=== PATIENT | female | born 1995 | race Caucasian/White ===

== ENCOUNTER 2024-07-03 17:10 | Inpatient (IN) | payer BC, SELFPAY ==
--- OUTSIDE RECORDS SUMMARY | 2024-07-03 17:14 | XMS_ITS | Clinical Summary ---
Author Organization [facility] Address [address], [place] [address] Care Team Providers Care Bilingual Kindergarten Teacher Name Role Phone Nathalie Galvan PA-C Primary Care Provider + [phone] Source Comments You are receiving this document as you are listed as the primary care provider,follow-up provider, or the patient has been referred to you for consultation.This is in compliance with the Medicare and[facility] E[facility] Incentive [facility],which states Providers who transition their patient to another setting of careor provider of care or refers their patient to another provider of care shouldprovide summary care record for each transition of care or referral. [facility] Allergies No known active allergies Medications Medication Sig Dispensed Refills Start Date End Date Status SUMAtriptan (IMITREX) 100 MG tablet Take 1 Tablet (100 mg) by mouth. Active EVER 0.25-35 MG-MCG tabletIndications:Oral contraceptive pill surveillance TAKE 1 TABLET BY MOUTH EVERY DAY 90 Tablet 2 04/11/2023 Active Active Problems Problem Noted Date Diagnosed Date Traumatic rhabdomyolysis 04/20/2022 Eczema 04/01/2013 Resolved Problems Problem Noted Date Diagnosed Date Resolved Date Dysuria 12/22/2022 12/22/2022 Left arm pain 04/20/2022 04/26/2022 Cervical cancer screening 12/12/2017 Overview (09/24/2020): Per visit note 12/06/17, no hx abnormal Pap 2018 ASCUS, HPV Positive for High Risk HPV types other than 16 or 18 22 y.o. Plan, per ASCCP guidelines: Repeat cytology only in 12 months (11/2017) 2019 NILM 23 y.o. 2020 NILM 25 y.o. Plan: Pap 09/2023 Plantar wart, left foot 06/15/2015 06/0 06/2022 Dysmenorrhea 04/01/2013 04/26/2022 Immunizations Name Administration Dates Next Due 4vHPV (Gardasil) 11/14/2007,07/09/2007, 7 DTP-Hib (Tetramune) 1995,1995,1994 DTaP 05/11/2000,10/27/1996 Flu Vac (3+ yrs) 08/24/2020,01/11/2007 HepA Adult (19+ yrs) 12/22/2022 HepA Ped/Adol (1-18 yrs) 04/19/2015,04/19/2015,0 04/01/2013 HepB Ped/Adol (0-18 yrs) 01/21/1996,1995,0 1995 MCV4 (Menactra) 04/01/2013,05/03/2007 MCV4 Menveo 2m.+ (two vial) 04/01/2013 MMR 05/11/2000,07/28/1996 Polio, Unspecified Formulation 05/11/2000,1994,1995,1995 Tdap 12/04/2017,05/03/2007 Family History Medical History Relation Name Comments No Known Problems Father No Known Problems Mother No Known Problems Maternal Grandfather No Known Problems Maternal Grandmother No Known Problems Paternal Grandfather Dementia Paternal Grandmother No Known Problems Sister 1 No Known Problems Sister 2 Relation Name Status Comments Father Alive Mother Alive Maternal Grandfather Alive Maternal Grandmother Alive Paternal Grandfather Paternal Grandmother (Age 88) Sister 1 Alive Sister 2 Alive Social History Tobacco Use Types Packs/Day Years Used Date Smoking Tobacco: Never Smokeless Tobacco: Never Alcohol Use Standard Drinks/Week Comments Yes 3 (1 standard drink = 0.6 oz pur e alcohol) occ. PHQ-2 Answer Date Recorded PHQ-2 Score 0 03/13/2023 Sex and Gender Information Value Date Recorded Sex Assigned at Not on file Gender Identity Not on file Sexual Orientation Not on file Last Filed Vital Signs Vital Sign Reading Time Taken Comments Blood Pressure 118/69 03/13/2023 2:35 PM CDT Pulse 66 03/13/2023 2:35 PM CDT Temperature 36.7 ??C (98 ??F) 03/13/2023 2:35 PM CDT Respiratory Rate 16 03/13/2023 2:35 PM CDT Oxygen Saturation 99% 08/23/2022 2:39 PM CDT Inhaled Oxygen Concentration - - Weight 71.7 kg (158 lb) 03/13/2023 2:35 PM CDT Height 166.4 cm (5' 5.5) 03/13/2023 2:35 PM CDT Body Mass Index 25.89 03/13/2023 2:35 PM CDT Plan of Treatment Health Maintenance Due Date Last Done Comments Adult Preventive Visit 09/20/2022 , 11/22/2018, 12/04/2017, Additional history exists COVID-19 Vaccine ( season) 2023 Cervical Cancer Screening 09/20/20232019, 11/22/2018, 12/04/2017 Influenza (#1) 2024 08/24/2020, 01/11/2007 DTaP/Tdap/Td (8 - Tdap) 12/04/2027 12/04/19 18, 05/03/2007, 05/11/2000, Additional history exists Zoster/Shingles (1 of 2) 2045 Hib Aged Out 1995, 12/1994, 1995 No longer eligible based on patient's age to complete this topic HepB Completed 01/21/1996, 05/1995, 1995 IPV (Polio) Completed 05/11/2000, 10/19, 1995, Additional history exists HPV Vaccine Completed 11/14/2007, 06/20, 05/03/2007 MCV4 Completed 04/01/2013, 03/19, 05/03/2007 Chlamydia Discontinued 01/18/2022, 12/2019, 11/22/2018, Additional history exists HIV Screening (Preventive Services) Completed 04/26/2022 Hep C Screening (Preventive Services) Completed 04/26/2022 HepA Completed 12/22/2022, 0611/2014, 04/19/2015, Additional history exists Pneumococcal Aged Out No longer eligi ble based on patient's age to complete this topic Procedures Procedure Name Priority Date/Time Associated Diagnosis Comments HIV 1/2 AG/AB 4TH GEN Routine 04/26/2022 3:25 PM CDT Screening for HIV (human immunodeficiency virus) HEPATITIS C ANTIBODY, WITH REFLEX Routine 04/26/2022 3:25 PM CDT Need for hepatitis C screening test CHLAMYDIA & GC (14 YEARS & OLDER) Routine 01/18/2022 1:40 PM MOTOR 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 Vaginal itching PAP TEST Routine 09/20/2020 9:51 AM MOTOR VEHICLE EMISSIONS INSPECTOR Screening for malignant neoplasm of cervix from Last 3 Months or Most Recently Relevant to Health Maintenance Results * HIV 1/2 Ag/Ab 4th Generation (04/26/2022 3:25 PM CDT) HIV 1/2 Antigen/Antib yuval (4th generation) Negative (Non Reactive) Negative (Non Reactive) 04/26/2022 8:26 PM CDT [facility] Comment:HIV-1 p24 Antigen an d HIV-1/HIV-2 Antibody not detected Blood Venipuncture / Unknown 04/26/2022 3:25 PM CDT 04/26/2022 3:25 PM CDT Nathalie Galvan PA-C LAB_1 [facility] [address] [place] [address], [facility] * Hepatitis C Virus Jenn with Reflex (04/26/2022 3:25 PM CDT) Hepatitis C Antibody Negative (Non Reactive) Negative (Non Reactive) 04/26/2022 8:45 PM CDT [facility] Comment:Antibodies to HCV no t detected. Does not exclude the possiblity of exposure to HCV. Blood Venipuncture / Unknown 04/26/2022 3:25 PM CDT 04/26/2022 3:25 PM CDT Nathalie Galvan PA-C LAB_1 [facility] [address] * Chlamydia and GC STD (01/18/2022 1:40 PM MOTOR VEHICLE EMISSIONS INSPECTOR) Chlamydia Trachomatis STD Not Detected Not Detected 01/19/2022 12:06 PM MOTOR VEHICLE EMISSIONS INSPECTOR [facility] N. gonorrhoeae STD Not Detected Not Detected 01/19/2022 12:06 PM MOTOR VEHICLE EMISSIONS INSPECTOR [facility] Swab STD SPECIMEN FROM VAGINA / Unknown Non-blood Collection / Unknown 01/18/2022 1:40 PM MOTOR VEHICLE EMISSIONS INSPECTOR 01/18/2022 3:48 PM MOTOR VEHICLE EMISSIONS INSPECTOR Narrative [facility] - 01/19/2022 12:06 PM MOTOR VEHICLE EMISSIONS INSPECTOR Test performed by Insurance Associate Mediated Amplification (TMA). Nathalie Galvan PA-C LAB_1 Performing Organization Address [facility] Co de Phone Number [facility] [address] [phone] * PAP Test (09/20/2020 9:51 AM MOTOR VEHICLE EMISSIONS INSPECTOR) Case Report Pap ? Case: [id number] ? Authorizing Provider: ??Faith Carr APRN, CNP Collected: ? 09/20/2020 0951 ? Ordering Location: [facility] ?? Received: ?09/20/2020 1039 ? First Screen: ?Vanessa [place] CT (ASCP) ? Specimen: ?Pap Test, Routine, Cervix/Endocervix ? 09/24/2020 10:07 AM [facility] Pap Specimen Adequacy Satisfactory for evaluation, endocervical/ramsay sformation zone component absent. 09/24/2020 10:07 AM [facility] Pap Interpretation Negative for intraepithelial lesion or malignancy (NILM). 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 09/24/2020 10:07 AM [facility] Pap Disclaimer The Pap test is a screening test designed to aid in the detection of cervical cancer and its precursor lesions. It is not a diagnostic procedure and should not be used as the sole means of detecting cervical cancer. Both false-positive and false-negative results may occur. 09/24/2020 10:07 AM [facility] Gross Description The specimen is received in SurePath fixative and properly labeled. 1 Pap-stained SurePath slide is prepared. 09/24/2020 10:07 AM [facility] Embedded Images 0 10:07 AM [facility] Other Specimen Type ENTIRE ENDOCERVIX / Unknown 09/20/2020 9:51 AM MOTOR VEHICLE EMISSIONS INSPECTOR 09/20/2020 10:39 AM MOTOR VEHICLE EMISSIONS INSPECTOR Comment:LMP: Patient's last menstrual period was 09/14/2020 (approximate). Faith Carr APRN, TYPING CHECKER LAB PATHOLOGY Performing Organization Address City/State/[facility] de Phone Number [address] [address] [phone] from Last 3 Months or Most Recently Relevant to Health Maintenance Advance Directives * Full Code (Latest Code Status on File) Date Activated Date Inactivated Comments 04/20/2022 3:18 PM 2022 1:13 PM Question Answer Comments On Admission, Code status was determined by: Dis cussed with patient/family Care Teams Bilingual Kindergarten Teacher Relationship Specialty Start Date End Date Nathalie Galvan PA-C [id number] [place] [address] PCP - General Physician English As A Second Language Instructor 08/23/22
--- OUTSIDE RECORDS SUMMARY | 2024-07-03 17:14 | XMS_ITS | Continuity of Care Document ---
Author Organization [facility] Address Unknown Care Team Providers Care Finance Lead Name Role Phone BC ORTEGA Primary Care Physician [phone] Encounter Date(s): 04/25/24 - 04/25/24 [facility] [address] [place] [phone] Encounter Diagnosis (Discharge Diagnosis) - 04/25/24 Discharge Disposition: 01-Discharge to Home (Routine) Attending Physician: Kylie ZACARIAS, Juan Miguel Narvaez Allergies, Adverse Reactions, Alerts No Known Allergies Mental Status 04/25/24 Neurological Symptoms None Gait Steady Characteristics of Speech Clear Level of Consciousness Alert Problem List Condition Confirmation Course Effective Dates Status Health St atus Informant 1 Confirmed 04/25/24 Active 1Patient states US dates and LMP dates were within 3 days of each other Vital Signs Most recent to oldest [Reference Range]: 1 Height/Length Measured 165 cm (04/25/24 11:28 AM) Weight 81.2 kg (04/25/24 11:28 AM) Body Mass Index 29.8 kg/m2 (04/25/24 11:28 AM) SpO2 [90-100 %] 98 % (04/25/24 1:00 PM) Blood Pressure [90-139/60-89 mmHg] 108/6 7mmHg (04/25/24 1:00 PM) Temperature Temporal Artery [36.3-37.8 D egC] 36.8 DegC (04/25/24 11:28 AM) Peripheral Pulse Rate [60-100 bpm] 80 bp m (04/25/24 11:28 AM) Heart Rate Monitored [60-100 bpm] 82 bpm (04/25/24 1:00 PM) Respiratory Rate [14-20 br/min] 16 br/mi n (04/25/24 11:28 AM) Mean Arterial Pressure, Cuff 81 mmHg (04/25/24 1:00 PM) Pulse Rate (SpO2) 81 bpm (04/25/24 1:00 PM) Social History Social History Type Response Smoking Status Never smoker; Smokel ess tobacco use: Never smokeless tobacco entered on: 04/25/24 Sex Hospital Discharge Instructions Patient Education 04/25/2024 12:51:02 : Kick Counts Counting Your Baby's Kicks: Care Instructions Overview Counting your baby's kicks is one way your doctor can tell that your baby is healthy. You will probably feel your baby move for the first time between 16 and 22 weeks. The movement may feel like flutters rather than kicks. Your baby may move more at certain times of the day. When you are active, you may notice less kicking than when you are resting. At your visits, your doctor will ask whether the baby is active. In your last trimester, your doctor may ask you to count the number of times you feel your baby move. Follow-up care is a davies part of your treatment and safety. Be sure to make and go to all appointments, and call your doctor if you are having problems. It's also a good idea to know your test resultsand keep a list of the medicines you take. How do you count kicks? A common method of checking your baby's movement is to note the length of time it takes to count 10 movements (such as kicks, flutters, or rolls). ??? Pick your baby's most active time of day to count. This may be any time from morning to evening. ??? If you don't feel 10 movements in an hour, have something to eat or drink and count for anotherhour. If you don't feel at least 10 movements in the 2-hour period, call your doctor. Do not use an at-home Doppler heart monitor in place of counting movements. When should you call for help? Call your doctor now or seek immediate medical care if: ??? You feel fewer than 10 movements in a 2-hour period. ??? You noticed that your baby has stopped moving or is moving less than normal. Watch closely for changes in your health, and be sure to contact your doctor if you have any problems. Where can you learn more? Go to https://www.[employer].net/patientEd Enter U048 in the search box to learn more about Counting Your Baby's Kicks: Care Instructions. Current as of: May 29, 2023?Content Version: 13.8 ?? [employer]. Care instructions adapted under license by your healthcare professional. If you have questions about a medical condition or this instruction, always ask your healthcare professional. [employer] disclaims any warranty or liability for your use of this information. Follow Up Care 04/25/2024 11:07:01 With:BC ORTEGA Address: [address] [place] [phone] When: Unknown Comments:Monitor symptoms closely. ??Follow-up with your OB physician when you return home for further care and??treatment. Emergency department Discharge instructions * Susan LEWIS, Louise Schulte: PERFORM Event Display: ED Discharge Instructions Authored Date: [id number] [facility] [address] [place],??[place],??[phone] Fax:??[phone] Patient Visit Instructions Patient Information GINA HOPSON :1995 Date:??04/25/24 [facility] would like to thank you for allowing us to assist you with your healthcare needs. Our entire staff strives to provide a very good experience for our patients and their families. Please ensure you follow-up per the instructions below. Accessing Your Medical Information Online Information from your today's visit will be available on [facility]. This includes clinical notes with your health care provider's notes, findings from your exam and recommendations, including your treatment plan, follow-up appointments or referrals. Lab results, diagnostic testing and discharge instructions also will be available. To access [facility], visit [email or web address] and click on the [facility] icon in the upper right hand corner. You will be directed to the login page. To access your medical record from [facility], navigate to the left bar and select the 'Health Record' dropdown. To setup a [facility] account, go to [email or web address]. If you do not find the documents you need on [facility], please contact [facility] Release of Information: ???Phone: , ext. [phone], option 3?Email: [email or web address] Diagnosis from Today's Visit Discharge Vitals Temperature??(Temporal Artery) 36.8 DegC Heart Rate??(Peripheral) 80 bpm Respiratory Rate?? 16 br/min Blood Pressure?? 127/71?? Height?? 64.96 in Weight?? 179.02 lb BMI?? 29.8 Allergies No Known Allergies What to Do Next You were treated today on an emergency/urgent basis; it may be courtney to contact your primary care provider to notify them of your visit today. You may have been referred to your regular doctor or a specialist, please follow up as instructed. If your condition worsens or you can't get in to see the doctor, contact the Emergency Department. Follow-Up Care Follow Up with??BC ORTEGA Comment: Monitor symptoms closely. ??Follow-up with your OB physician when you return home for further care and??treatment. Where: [place] [phone] Education Materials ? Counting Your Baby's Kicks: Care Instructions Overview Counting your baby's kicks is one way your doctor can tell that your baby is healthy. You will probably feel your baby move for the first time between 16 and 22 weeks. The movement may feel like flutters rather than kicks. Your baby may move more at certain times of the day. When you are active, you may notice less kicking than when you are resting. At your visits, your doctor will ask whether the baby is active. In your last trimester, your doctor may ask you to count the number of times you feel your baby move. Follow-up care is a davies part of your treatment and safety. Be sure to make and go to all appointments, and call your doctor if you are having problems. It's also a good idea to know your test resultsand keep a list of the medicines you take. How do you count kicks? A common method of checking your baby's movement is to note the length of time it takes to count 10 movements (such as kicks, flutters, or rolls). ??? Pick your baby's most active time of day to count. This may be any time from morning to evening. ??? If you don't feel 10 movements in an hour, have something to eat or drink and count for anotherhour. If you don't feel at least 10 movements in the 2-hour period, call your doctor. Do not use an at-home Doppler heart monitor in place of counting movements. When should you call for help? Call your doctor now or seek immediate medical care if: ? You feel fewer than 10 movements in a 2-hour period. ? You noticed that your baby has stopped moving or is moving less than normal. Watch closely for changes in your health, and be sure to contact your doctor if you have any problems. Where can you learn more? Go to https://www.[employer].net/patientEd Enter U048 in the search box to learn more about Counting Your Baby's Kicks: Care Instructions. Current as of: May 29, 2023?Content Version: 13.8 ?? [employer]. Care instructions adapted under license by your healthcare professional. If you have questions about a medical condition or this instruction, always ask your healthcare professional. [employer] disclaims any warranty or liability for your use of this information. ?? Note * Juan Miguel Espinal MD: PERFORM Event Display: ED/UC Note-Provider Authored Date: [id number] Encounter Type Emergency Basic Information Time Seen: Juan Miguel Espinal MD ??04/25/2024 11:25 Chief Complaint 30 wks, reduced movement History of Present Illness Social history: Visiting the area for the weekend.29-year-old female patient who is approximately??29 days and 3 weeks presents for??evaluation of the . ??Patient reports that??she does have decreased movement in the past week but normal over the last 12 hours.?? For that reason??she came in here to be evaluated. ?? This is her first she never had a previous miscarriages.?? Follow-up for the back home and heart tones are generally been in the 130s and 140s.?? Resume to date of confinement about??July 08, 2024.?? She has had no vaginal bleeding and no vaginal discharge. ??No pelvic pain or abdominal??pain with this.?? No other concerns. ?? Past medical history: 1 para 0??she denies any other long-term medical problems. Review of Systems As documented in HPI Problem List/Past Medical History Ongoing Social History Alcohol Use:Never Electronic Cigarette/Vaping E-Cigarette Use:Never Home/Environment Injuries/Abuse/Neglect in household:No Feels unsafe at home:No Substance Abuse Use:Never Tobacco Smoking tobacco use:Never smoker Smokeless tobacco use:Never smokeless tobacco Allergies No Known Allergies Physical Exam Vital Signs & Measurements Triage: T: 36.8 ??C (Temporal Artery) HR: 80 (Peripheral) BP: 127/71 RR: 16 SpO2: 100% O2 Therapy: Room air WT: 81.2 kg WT: 81.200 kg (Dosing) BMI: 29.8 General: Patient is awake alert pleasant cooperative does not appear in any acute distress. ??Vitalsigns are stable heart tones are in the 130s. Medication inventory not completed. Medical Decision Making The OB nurse was present and checked for heart tones.? heart tones were checked and they were in the 130s. ??We also obtained an ultrasound which showed normal cervix, normal amount of amniotic fluid. ??Good movement??of the fetus.?? No other concerning findings at this time. ?? At this time things are reassuring and checked out normal on the patient. ??She has no other concerns.?? Will have the patient discharged home and follow-up with her regular OB doctor back home. ??She has an appointment for this next week. Assessment/Plan 1.?? Ordered: Discharge Patient, 04/25/24 12:48:00 CDT, Discharge To: to Home, Constant Indicator ?? Follow Up Care With When Contact Information [place], [place] [address] [place] [address] Additional Instructions: Monitor symptoms closely. ??Follow-up with your OB physician when you return home for further care and??treatment. Electronically Signed on 04/25/2024 12:48 PM CDT Kylie ZACARIAS, Juan Miguel Narvaez Emergency department Education note * Susan LEWIS, Louise Schulte: PERFORM, SIGN, VERIFY Event Display: ED Patient Education Note Authored Date: pediatric hospitalist Counting Your Baby's Kicks: Care Instructions Overview Counting your baby's kicks is one way your doctor can tell that your baby is healthy. You will probably feel your baby move for the first time between 16 and 22 weeks. The movement may feel like flutters rather than kicks. Your baby may move more at certain times of the day. When you are active, you may notice less kicking than when you are resting. At your visits, your doctor will ask whether the baby is active. In your last trimester, your doctor may ask you to count the number of times you feel your baby move. Follow-up care is a davies part of your treatment and safety. Be sure to make and go to all appointments, and call your doctor if you are having problems. It's also a good idea to know your test resultsand keep a list of the medicines you take. How do you count kicks? A common method of checking your baby's movement is to note the length of time it takes to count 10 movements (such as kicks, flutters, or rolls). ??? Pick your baby's most active time of day to count. This may be any time from morning to evening. ??? If you don't feel 10 movements in an hour, have something to eat or drink and count for anotherhour. If you don't feel at least 10 movements in the 2-hour period, call your doctor. Do not use an at-home Doppler heart monitor in place of counting movements. When should you call for help? Call your doctor now or seek immediate medical care if: ??? You feel fewer than 10 movements in a 2-hour period. ??? You noticed that your baby has stopped moving or is moving less than normal. Watch closely for changes in your health, and be sure to contact your doctor if you have any problems. Where can you learn more? Go to https://www.[employer].net/patientEd Enter U048 in the search box to learn more about Counting Your Baby's Kicks: Care Instructions. Current as of: May 29, 2023?Content Version: 13.8 ?? [id number] [employer]. Care instructions adapted under license by your healthcare professional. If you have questions about a medical condition or this instruction, always ask your healthcare professional. [employer] disclaims any warranty or liability for your use of this information. US for limited * Kylie ZACARIAS, Juan Miguel Narvaez: ENDORSE Juan Miguel Espinal MD: ENDORSE, PERFORM, SIGN Susan LEWIS, Louise Schulte: REVIEW Event Display: US OB Limited Authored Date: [id number] Patient Care team information Care Team Personnel Name: BC ORTEGA Member Role: Primary Care Physician Address: Address: [address] [place] [phone] [place] Care Team Related Persons Name: VALERIO HOPSON Address: Home [id number] [place] [phone]
--- OUTSIDE RECORDS SUMMARY | 2024-07-03 17:14 | XMS_ITS | Clinical Summary ---
Author Organization [employer] [facility] Address [place], [place] [address] Care Team Providers Care Frame Catcher Name Role Phone Abraham Stevenson MD Unavailable [phone] Brandi Tirado MD Primary Care Provider Allergies No known active allergies Medications Medication Sig Dispensed Refills Start Date End Date Status no.167/folic acid/dha (ONE-A-DAY ORAL) Take by mouth. Active Breast Pump PurchaseIndications :Care and examination of lactating mother Electric breast pump for home use. Gestational age at delivery: 40 weeks. Reason for need: return to work. Length of need: 99 months (lifetime use) 1 Each 02/21/2024 Active clindamycin phos 1%-benzoyl perox 5% gelIndications:Acne vulgaris Apply topically to affected area(s) two times daily. 25 g 11 05/01/2024 Active escitalopram oxalate (LEXAPRO) 5 mg tabletIndications:A nxiety Take 1 Tablet (5 mg) by mouth once daily in the morning. 90 Tablet 05/21/2024 Active Active Problems Problem Noted Date Diagnosed Date Choroid plexus cyst 03/06/2024 [facility] Supervision of high-risk Overview: Marlo Hearn : 1995 [facility] ULTRASOUND/TESTING PATIENT Support person name: Anselmo ULTRASOUND TYPE: L2 REASON FOR VISIT: choroid plexus cyst on outside US NEXT VISIT ALERTS: Final HORTENCIA by LMP LMP Date: Patient's last menstrual period was 10/02/2023 (exact date). HORTENCIA:07/08/24 Early US: Date: 12/03/23 GA: 8w3d HORTENCIA: 07/11/24 PrePregnancy Weight: 162 lbs Height: 5'6 BMI: 26 PLANS & FUTURE APPOINTMENTS: ULTRASOUND/GROWTH PLAN: - Through: - Growth: Next TESTING PLAN: - Testing: Through DELIVERY PLAN: - Scheduled delivery: - Preferred delivery location: PRIMARY DIAGNOSIS: 28 y.o. Estimated Date of Delivery: 07/08/24 Choroid plexus cyst on outside US MATERNAL Depression PREVIOUS ULTRASOUNDS: 03/06/24 22w2d 02/21/24 20w2d EFW 383 grams, percentile: 78th. R Chorioid plexus cyst (PCP) ECHO: REFERRING PROVIDER/CLINIC: Brandi Tirado MD - [facility] [place] Primary MD approves scheduling of recommended ultrasounds/testing: Yes SPECIALISTS/CONSULTS: Include: Specialty MD Clinic Name Phone# [place] and ADDED TO PATIENT CARE TEAM Yes GENETICS: NIPS: Low risk CARE COORDINATION: PERTINENT LABS: Labs reviewed? Yes Normal? Yes Blood type: A Rh Positive Antibody screen: Negative PERTINENT MEDS: PROCEDURES: IF FGR <10% or EFW <2000 grams: Add FGRPCOM PLAN OF CARE: Original and updated POC ASCUS with positive high risk HPV cervical 01/23 Overview: 11/2017 ASCUS 11/2018 NIL 09/2020 NIL 12/2023 ASCUS/HPV +, HPV 16/18 negative Provider Plan: Colposcopy Encounter for supervision of normal first in first trimester 12/19/2023 11/13/2023 Overview: Estimated Date of Delivery: 07/08/24 Patient's last menstrual period was 10/02/2023 (exact date). GBS- Vaginal/Rectal OB Strep B PCR Date Value Ref Range Status 06/13/2024 Negative Final 28wk labs- GLUCOSE,GESTATIONAL Date Value Ref Range Status 04/18/2024 74 70 - 139 mg/dL Final HEMOGLOBIN Date Value Ref Range Status 04/18/2024 12.3 12.0 - 16.0 g/dL Final TREPONEMA PALLIDUM Date Value Ref Range Status 04/18/2024 Non-Reactive Non-Reactive Final Last Tdap- 04/18/24 Last Flu vaccine- 2019 OB Labs: ABORH Date Value Ref Range Status 11/13/2023 A Rh Positive Final ANTIBODY SCREEN Date Value Ref Range Status 11/13/2023 Negative Negative Final TREPONEMA PALLIDUM Date Value Ref Range Status 11/13/2023 Non-Reactive Non-Reactive Final RUBELLA IGG ANTIBODY Date Value Ref Range Status 11/13/2023 12.20 >=1.00 Index Final INTERPRETATION Date Value Ref Range Status 11/13/2023 Positive Final Comment: Presence of detectable IgG antibodies. A positive result generally indicates exposure to the virus or previous vaccination, but is not an indication of active infection or stage of disease. 11/13/2023 Positive Final Comment: Presence of detectable IgG antibodies. A positive result generally indicates exposure to the virus or previous vaccination, but is not an indication of active infection or stage of disease. HBSAG Date Value Ref Range Status 11/13/2023 Nonreactive Nonreactive Final HEPATITIS C ANTIBODY Date Value Ref Range Status 11/13/2023 Non-Reactive Non-Reactive Final Comment: Please note, per www.CDC.gov: If a patient is known to be at high risk of HCV infection, or is symptomatic, and the physician's suspicion of HCV infection is high, HCV RNA testing is often employed and is of diagnostic value, even after an initial negative anti-HCV test result. HIV-1/HIV-2 SCREEN Date Value Ref Range Status 11/13/2023 Non-Reactive Non-Reactive Final Comment: HIV-1 p24 and HIV-1/HIV-2 Ab Not Detected. VARICELLA ZOSTER IGG ANTIBODY Date Value Ref Range Status 11/13/2023 2,110.0 >=165.0 INDEX Final HEMOGLOBIN Date Value Ref Range Status 11/13/2023 13.1 12.0 - 16.0 g/dL Final PLATELET COUNT Date Value Ref Range Status 11/13/2023 231 140 - 440 thou/cu mm Final CHLAMYDIA PROBE Date Value Ref Range Status 11/13/2023 Negative Final N GONORRHOEAE PROBE Date Value Ref Range Status 11/13/2023 Negative Final No Known Allergies OB History Para Term AB Living 1 0 0 0 0 0 SAB IAB Ectopic Multiple Live Births 0 0 0 0 0 # Outcome Date GA Lbr Celso/2nd Weight Sex Delivery Anes PTL Lv 1 Current Past Medical History: . Date Abnormal Pap smear of cervix 2020 Has had normal PAP since Depression 2017 Migraine headache 2016 Varicella 1998 Past Surgical History: . Laterality Date TONSIL AND ADENOIDECTOMY Bilateral 2005 WISDOM TEETH EXTRACTION Bilateral 2013 Problems (from 11/13/23 to present) No problems associated with this episode. ERICA MCDANIEL RN ....11/13/2023 11:10 AM Estimated Date of Delivery Comme nts Yes 07/08/2024 Encounters Date Type Department Care Team Description 07/02/2024 8:25 AM CDT OB Encounter [address] [place] [address] Brandi Tirado MD Care (39w1d ) 07/02/2024 Travel 07/01/[address] [address] Brandi Tirado MD Appointment Request (APPT REQUEST PRIOR TO 8-16 IF POSSIBLE ) 06/30/2024 Travel 06/27/2024 8:45 AM CDT OB Encounter [address] [address] Lainey Casey DO Care (38 weeks 3 days) 06/27/2024 Travel 06/23/2024 Travel 06/20/2024 8:50 AM CDT OB Encounter [address] [place] [address] Brandi Tirado MD Care (37w 3d/Anxiety is pretty high right now) 06/20/2024 Travel 06/16/2024 Travel 06/13/2024 9:15 AM CDT OB Encounter [address] [place] [address] Brandi Tirado MD Care (36w 3d) 06/13/2024 Travel 06/10/2024 Travel 05/29/2024 11:45 AM CDT OB Encounter [address] [place] [address] Brandi Tirado MD Care (34w 2d/) 05/28/2024 Travel 05/16/2024 11:45 AM CDT [facility] [address] [place] [address] Brandi Tirado MD Care (32 wks 3 days/might have yeast infection-- itchy and feeling like needing to pee more than normal and pain /) 05/16/2024 Travel 05/01/2024 3:15 PM CDT [facility] [address] [place] [address] [address] Brandi Tirado MD Care (30 wks 2 days bacne has been getting worse and painful would like to talk about that) 05/01/2024 Travel 04/18/2024 10:30 AM CDT [facility] [address] [place] [address] [address] Brandi Tirado MD Care (28w 3d/) 04/18/2024 Travel from Last 3 Months Immunizations Name Administration Dates Next Due DTP-HIB 1995,1995,1995 DTaP 05/11/2000,10/27/1996 Hepatitis A (Adult) 12/22/2022 Hepatitis A (Peds) 04/19/2015,04/01/2013 Hepatitis B (Peds) 01/21/1996,1995, 995 Human Papilloma Virus Vaccine 11/14/2007, 007,05/03/2007 Inactivated Polio Vaccine 05/11/2000 Influenza, IIV3 (Age >=3 years) 01/11/2007 MMR 05/11/2000,07/28/1996 Meningococcal Vaccine (Menactra) 04/01/2013,04/19 Meningococcal Vaccine (Menveo) 04/01/2013 Oral Polio Vaccine 1995,1995, 995 Polio Virus, Unspecified 05/11/2000,1995,1 ,1995 Tdap 04/18/2024,12/04/2017,05/03/2007 Family History Medical History Relation Name Comments Good Health Father Heart attack Maternal Uncle Good Health Mother Alzheimer's disease Paternal Grandmother Relation Name Status Comments Father Maternal Uncle Mother Paternal Grandfather Paternal Grandmother Social History Tobacco Use Types Packs/Day Years Used Date Smoking Tobacco: Never Passive Smoke Exposure: Never Smokeless Tobacco: Never Tobacco Cessation:Counseling Given: Yes Alcohol Use Standard Drinks/Week Comments Not Currently 0 (1 standard drink = 0.6 oz pur e alcohol) PHQ-2 Answer Date Recorded PHQ-2 TOTAL SCORE 4 05/19/2024 Social Connections Answer Date Recorded Frequency of Communication with Friends and Fami ly 0 12/19/2023 Financial Resource Strain Answer Date R ecorded Difficulty of Paying Living Expenses 3 12/19/2023 Difficulty of Paying Living Expenses Not on file 12/19/2023 Food Insecurity Answer Date Recorded Worried About Running Out of Food in the Last Ye ar 1 12/19/2023 Transportation Needs Answer Date Record ed Lack of Transportation (Medical) 1 12/19/2023 Housing Stability Answer Date Recorded Unable to Pay for Housing in the Last Year 1 12/19/2023 Estimated Date of Delivery Comme nts Yes 07/08/2024 Sex and Gender Information Value Date Recorded Sex Assigned at Not on file Gender Identity Not on file Sexual Orientation Not on file Obstetrics History Para Term AB IAB SAB Ectopic Multiple Livin g Live Births 1 0 0 0 0 0 0 0 Date Outcome GA Total Labor Labor/2nd/3rd Weight Sex Type Anes PTL Jessie A1 A5 Name Clin Current Summary Episode Dates Number of Fetuses Estimated Date of Delivery 11/13/2023 - Present (07/03/2024) 07/08/2024 (set by Erica Mcdaniel, JOSHUA on 11/13/2023 based on Alternate HORTENCIA Entry) Dating Summary Based On HORTENCIA GA Diff Last Menstrual Period on 10/02/2023 (Exact Date) 07/08/2024 Same Alternate HORTENCIA Entry 07/08/2024 Working Vitals Pregravid Weight Height TWG (As of 07/03/2024) Pregrav id BMI 1.676 m (5' 6) Date GA Fund Present FHR Mvmt BP Weight Edema Alb Glu Ket Dil/ Eff/Sta 4 22w2d Inpatient data not displayed here. See encounter summary. Notes Progress Notes - OB Encounte r - 07/02/2024 - GA:39w1d 07/02/2024 - 39w1d - Brandi Tirado MD SUBJECTIVE: Marlo Hearn is a 29 y.o. female at 39+1 weeks. NO regular/painful contractions, no leaking fluid. No concerns. See visit comments. OBJECTIVE: see OB vitals flow sheet ASSESSMENT : 39+1 weeks gestation with no complications PLAN: Labor signs and symptoms reviewed with patient including painful regular contractions or leaking fluid. RTC 1 weeks. Brandi Tirado MD .................... 07/02/2024 8:36 AM [facility] - GA:38w3d 06/27/2024 - 38w3d - Lainey Casey DO Patient is here for routine care at 38w3d -specific issues: None Concerns today: has had a few [place] contractions; nothing particularly painful or consistent. No bleeding or LOF. No Headache, vision changes, edema, right upper quadrant pain. Baby is moving well Discussed signs/symptoms of labor and when to call See vitals flowsheet. Patient curious about possible induction; briefly reviewed options for induction. Patient will discuss further with primary OB provider next week. RTC in 1 week. Lainey Casey DO .................... 06/27/2024 9:01 AM Progress Notes - OB Encounte r - 06/20/2024 - GA:37w3d 06/20/2024 - 373d - Brandi Tirado MD SUBJECTIVE: Marlo Hearn is a 29 y.o. female at 37+3 weeks. No concerns. Other than a little more anxious this week. NOt sure is lexapro is helping yet. Not ready to increase medication. See visit comments. OBJECTIVE: see OB vitals flow sheet ASSESSMENT : 37+3 weeks gestation with no complications PLAN: Labor signs and symptoms reviewed with patient including painful regular contractions or leaking fluid. RTC 1 weeks. Brandi Tirado MD .................... 06/19/2024 7:10 PM Progress Notes - OB Encounte r - 06/13/2024 - GA:36w3d 06/13/2024 - 36w3d - Brandi Tirado MD SUBJECTIVE: Marlo Hearn is a 29 y.o. female at 36+3 weeks. No concerns. See visit comments. OBJECTIVE: see OB vitals flow sheet ASSESSMENT : 36+3 weeks gestation with no complications PLAN: Labor signs and symptoms reviewed with patient including painful regular contractions or leaking fluid. GBS completed today RTC 1 weeks. Brandi Tirado MD .................... 06/13/2024 9:18 AM Progress Notes - OB Encounte r - 05/29/2024 - GA:34w2d 05/29/2024 - 34w2d - Brandi Tirado MD SUBJECTIVE: Marlo Hearn is a 29 y.o. female at 34+2 weeks. No concerns. See visit comments. OBJECTIVE: see OB vitals flow sheet ASSESSMENT : 34+2 weeks gestation with no complications PLAN: labor signs and symptoms reviewed with patient including pain, cramping, bleeding or leaking fluid. RTC 2 weeks with GBS Brandi Tirado MD .................... 05/29/2024 12:01 PM Progress Notes - OB Encounte r - 05/16/2024 - GA:32w3d 05/16/2024 - 32w3d - Brandi Tirado MD SUBJECTIVE: Marlo Hearn is a 29 y.o. female at 32+3 weeks. Has had vaginal itching and pain with urination. No increased vaginal discharge. This feels like prior yeast infections. See visit comments. OBJECTIVE: see OB vitals flow sheet Lab Results Component Value Date/Time WBCUA 3-5 05/16/2024 11:58 AM RBCUA 0-2 05/16/2024 11:58 AM BACTERIAUA Many (A) 05/16/2024 11:58 AM EPITHELIALUA Few 05/16/2024 11:58 AM ASSESSMENT : 32+3 weeks gestation with no complications PLAN: labor signs and symptoms reviewed with patient including pain, cramping, bleeding or leaking fluid. Will await urine culture before starting antibiotics. She will try OCT yeast treatment now. Will let me know if symptoms are not improving. RTC 2 weeks. Brandi Tirado MD .................... 05/16/2024 11:55 AM Progress Notes - OB Encounte r - 05/01/2024 - GA:30w2d 05/01/2024 - 30w2d - Brandi Tirado MD SUBJECTIVE: Marlo Hearn is a 29 y.o. female at 30+2 weeks. Went to ER in [place], [place] while vacationing due to decreased movement. Everything checked out fine. Still considering starting an SSRI to help prevent pp depression. She is ramping up frequency of therapy appointments. No other concerns. See visit comments. OBJECTIVE: see OB vitals flow sheet ASSESSMENT : 30+2 weeks gestation with no complications PLAN: labor signs and symptoms reviewed with patient including pain, cramping, bleeding or leaking fluid. RTC 2 weeks. Brandi Tirado MD .................... 05/01/2024 3:30 PM Progress Notes - OB Encounte r - 04/18/2024 - GA:28w3d 04/18/2024 - - Brandi Tirado MD SUBJECTIVE: Marlo Hearn is a 28 y.o. female at 28+3 weeks. No concerns. She does worry about developing pp depression. Has a history of depression, she is off medications for years, she continues to work with a therapist. See visit comments. OBJECTIVE: see OB vitals flow sheet ASSESSMENT : 28+3 weeks gestation with no complications PLAN: labor signs and symptoms reviewed with patient including pain, cramping, bleeding or leaking fluid. Discussed options for treatment of depression, both prior to or right after delivery. She will consider options and let me know. RTC 2 weeks. Brandi Tirado MD .................... 04/18/2024 10:59 AM Progress Notes - OB Encounte r - 03/21/2024 - GA:24w3d 03/21/2024 - w - Brandi Tirado MD SUBJECTIVE: Marlo Hearn is a 28 y.o. female at 24+3 weeks. Reviewed level 2 with resolution of chorioid plexus cyst. No concerns. See visit comments. OBJECTIVE: see OB vitals flow sheet ASSESSMENT : 24+3 weeks gestation with no complications PLAN: labor signs and symptoms reviewed with patient including pain, cramping, bleeding or leaking fluid. RTC 4 weeks with diabetes, hemoglobin & syphilis screening. And TDaP Brandi Tirado MD .................... 03/21/2024 4:08 PM Progress Notes - Hospital En counter - 03/06/2024 - GA:22w2d 03/06/2024 - w2d - Brice Corrigan MS, [facility] [place] Genetic Counseling RE: Marlo Hearn : 1995 MR: [id number] Referred By: Brandi Tirado MD Indication for Visit: Choroid plexus cyst History: HORTENCIA: 07/08/24 by ultrasound GAA: 22w2d Complete genetic screening/testing: Low risk NIPT Medications: none Exposures/infections: none Family History: The family history is negative for reports of defects, intellectual disability, multiple miscarriages, stillbirths and other signs of genetic disease. Family members were reported as healthy unless otherwise indicated. There is no reported consanguinity. Discussion: It was explained that Choroid plexus cysts are seen in approximately 1/100 pregnancies. The choroid plexus is a group of blood vessels in the brain whose function is to produce cerebral spinal fluid. A cyst is defined as fluid fill sac. When a cyst is located in this area of blood vessels, it is called a choroid plexus cyst (DATAPOWER CONSULTANT cyst). DATAPOWER CONSULTANT cysts are not harmful and frequently go away by 30 weeks of . Most often DATAPOWER CONSULTANT cysts occur as the only finding in a and are not associated with an increased level of concern. When DATAPOWER CONSULTANT cysts are seen in association with other problems such as growth delay, heart defects, and/or abnormal positioning of the hands and feet, there is concern for a chromosome abnormality called Trisomy 18. Babies with trisomy 18 have many serious health and developmental concerns and frequently live only weeks or months. A detailed level ll ultrasound is recommended to look for additional concerns. The vast majority of babies with Trisomy 18 will be suspected on a level ll ultrasound evaluation performed in a high risk center such as [facility]. If concerning findings are noted by ultrasound, further tests will be recommended. If the ultrasound results are reassuring yet the patient still wants more information, cell free DNA testing or amniocentesis can be considered. Reassuringly, Marlo already had a low risk NIPT and the remainder of the DATAPOWER CONSULTANT appeared to be an isolated finding. Plan: Marlo will proceed with the level II ultrasound today. See ultrasound report for details. Thank you for allowing us to participate in your patient's care. Please do not hesitate to contact me at [phone] with any additional questions or concerns. Sincerely, Reed Corrigan MS, CGC Licensed Genetic Counselor Total time: 30 minutes in person [facility] - [address], [address] [place] [address] 03/06/2024 - 22w2d - Senthil Knapp MD MPP Ultrasound Visit Your patient had an ultrasound with [facility] on 03/06/2024. The report is ready and can be found in the [facility]. Recommendations regarding further care are listed below. The Impression from the report is below. Thank you for sending her to see us. Senthil De Los Santos MD .................... 03/06/2024 1:33 PM INDICATION Right sided choroid plexus cyst seen on outside US (has resolved) Low risk NIPS Intrauterine at 22w 2d. presentation is Breech. EFW 547 grams 70 Percentile. Growth parameters and estimated weight were appropriate for gestational age. No major structural anomalies identified. No markers for aneuploidy were identified There is no evidence of placenta previa Deepest Vertical Pocket of amniotic fluid: 3.7 cm. The transabdominal cervical length is 3.9 cm. The choroid plexus cyst has resolved RECOMMENDATIONS Return to primary provider for continued care. No alterations in the delivery plan are necessary. No medication change are indicated. No surveillance suggested. No further ultrasounds are necessary for the present indication. COMMENT The patient was seen by the Perinatologist today. The previous ultrasound and the records were reviewed. The results of today's ultrasound were communicated to the patient. An isolated choroid plexus cyst (DATAPOWER CONSULTANT) was found on today's ultrasound. Today's findings are reassuring. CPCs have been associated with trisomy 18, however, most fetuses with an isolated choroid plexus cyst are euploidic, and, in fact, about 2-4% of normal fetuses have CPCs. An isolated DATAPOWER CONSULTANT in a low risk patient with an otherwise normal detailed survey is highly reassuring of a normal karyotype. In addition, multiple or bilateral CPCs do not increase the risk of trisomy 18. Finally, CPCs are not associated with adverse long-term developmental outcomes and do not require future follow up. There are alternatives available for detecting anomalies, aneuploidy and predicting developmental outcome for this . There are risks, benefits and limitations to maternal serum screening, ultrasound, and genetic amniocentesis. Discussed. All questions answered. Senthil De Los Santos MD .................... 03/06/2024 1:34 PM New government regulations related to the Cures act require that this note be released to the patient immediately, sometimes before the referring provider has been contacted. A portion of the information was presented verbally to the patient. The remainder is submitted as background for the referring provider, to be discussed as needed. Medical Decision Making: Consult 30 min Low Level 525[address] Limited number/complexity of problems including resolved DATAPOWER CONSULTANT Limited amount of data including review of prior ultrasound and review of prior external notes. Low risk of morbidity/mortality to the fetus from additional test or tx which (genetic amniocentesis was considered and declined). Progress Notes - OB Encounte r - 02/21/2024 - GA:20w2d 02/21/2024 - 20w2d - Brandi Tirado MD SUBJECTIVE: Marlo Hearn is a 28 y.o. female at 20+2 weeks. No concerns. See visit comments. OBJECTIVE: see OB vitals flow sheet ASSESSMENT : 20+2 weeks gestation with no complications PLAN: labor signs and symptoms reviewed with patient including pain, cramping, bleeding or leaking fluid. RTC 4 weeks. Brandi Tirado MD .................... 02/21/2024 10:45 AM Progress Notes - OB Encounte r - 01/16/2024 - GA:15w1d 01/16/2024 - 15w1d - Brandi Tirado MD SUBJECTIVE: Marlo Hearn is a 28 y.o. female at 15+1 weeks. No concerns. See visit comments. OBJECTIVE: see OB vitals flow sheet ASSESSMENT : 15+1 weeks gestation with no complications PLAN: Warning signs and symptoms reviewed with patient including pain, cramping, bleeding or leaking fluid. RTC 4-5 weeks. anatomy ultrasound in 5 weeks. Brandi Tirado MD .................... 01/16/2024 9:43 AM REAMER Progress Notes - OB Encounte r - 12/19/2023 - GA:11w1d 12/19/2023 - 11 - Brandi Tirado MD Images from the original note were not included. FIRST OB VISIT HPI: Marlo Hearn is a 28 y.o. female at 11w1d with lobo intrauterine here today for a initial OB exam. Estimated due date is Estimated Date of Delivery: 07/08/24 based on LMP and confirmed with 8 week ultrasound. Nausea/Vomiting: yes, but not bad Breast tenderness: yes Fatigue: yes Bleeding: no Taking vitamins: yes Options of sequential screen, cell-free DNA testing, amniocentesis were discussed. Patient is interested in pursuing testing. They want sex of baby in an envelope to shredder picker. AMA: no Previous : no OB History Para Term AB Living 1 0 0 0 0 SAB IAB Ectopic Multiple Live Births 0 0 0 # Outcome Date GA Lbr Celso/2nd Weight Sex Delivery Anes PTL Lv 1 Current Past Medical History: . Date Abnormal Pap smear of cervix 2019 Has had normal PAP since Depression 2017 Migraine headache 2016 Varicella 1999 Past Surgical History: . Laterality Date TONSIL AND ADENOIDECTOMY TONSIL AND ADENOIDECTOMY Bilateral 2004 WISDOM TEETH EXTRACTION Bilateral 2013 Family History Problem Relation Age of Onset Good Health Mother Good Health Father Heart attack Maternal Uncle 46 Alzheimer's disease Paternal Grandmother Social History Tobacco Use Smoking status: Never Passive exposure: Never Smokeless tobacco: Never Substance Use Topics Alcohol use: Not Currently Alcohol/week: 3.0 standard drinks of alcohol Types: 3 Standard drinks or equivalent per week Current Outpatient Medications Medication Sig no.167/folic acid/dha (ONE-A-DAY ORAL) Take by mouth. triamcinolone (ARISTOCORT) 0.1 % ointment Apply topically to affected area(s) 2 times daily. No current facility-administered medications for this visit. Medications have been reviewed by me and are current to the best of my knowledge and ability. ALLERGIES Patient has no known allergies. MENTAL HEALTH HISTORY History of psychiatric diagnosis: Depression Current mental health provider: not applicable Currently taking any psychiatric medications? No INFECTION HISTORY Current Drug Use: none Relevant infection history from OB Questionnaire: none REVIEW OF SYSTEMS Comprehensive ROS complete and negative other than noted in HPI and on OB Questionnaire. PHYSICAL EXAM BP 109/71 (Cuff Site: Right Arm, Position: Sitting, Cuff Size: Adult Regular) Pulse 89 Ht 1.676 m (5' 6) Wt 73.7 kg (162 lb 6.4 oz) LMP 10/02/2023 (Exact Date) SpO2 100% BMI 26.21 kg/m?? General Appearance: Alert, appropriate appearance for age. No acute distress. HEENT Exam: Grossly normal. Neck/Thyroid Exam: Supple, no masses, nodes or enlargement. Lungs: Clear to auscultation bilaterally. Breast Exam: Not indicated. Cardiovascular Exam: Regular rate and rhythm. S1, S2, no murmur. Abd: Soft, non-tender, no masses or organomegaly. Skin: no rashes or lesions. Lymphatics: no nodes palpable. Psychiatric Exam: Alert and oriented x 3, appropriate affect. Pelvic Exam: patient declines today, thinks she is not due for a pap yet. ASSESSMENT/PLAN 28 y.o. at 11w1d with lobo intrauterine . ICD-10-CM 1. Encounter for supervision of normal first in first trimester Z34.01 OK COLLECTION VENOUS BLOOD VENIPUNCTURE 2. Screening for cervical cancer Z12.4 CERTIFICATION ENGINEER THIN PREP PAP SCREEN IMAGED [[id number]] Satisfactory exam. Demonstrates appropriate and health-seeking behaviors toward her . Verbalizes good understanding of care schedule and the importance of coming to each visit as scheduled. Start/continue vitamins. Reviewed labs. She was encouraged to call the office with any questions or concerns. Body mass index is 26.21 kg/m??. Diet and expected weight gain discussed with patient. DEPRESSION SCREEN No data to display Intervention: she is currently receiving therapy and we discussed treatment options if needed in or . Brandi Tirado MD REAMER Progress Notes - OB Encounte r - 11/13/2023 - GA:6w0d 11/13/2023 - 6w0d - Erica Rucker RN SUBJECTIVE: Marlo Hearn is a 28 y.o. female, , who presents for confirmation and ob education. Patient presents to the clinic alone. Had positive test at home. This was Planned, Desired. Patient was not on contraception. 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 MENSTRUAL HISTORY: Patient's last menstrual period was 10/02/2023 (exact date).: Cycle Regularity: regular, every 28-30 days Past Medical History: . Date Abnormal Pap smear of cervix 2020 Has had normal PAP since Depression 2017 Migraine headache 2016 Varicella 1999 OB History Para Term AB Living 1 SAB IAB Ectopic Multiple Live Births # Outcome Date GA Lbr Celso/2nd Weight Sex Delivery Anes PTL Lv 1 Current 5P'S SUBSTANCE ABUSE SCREEN FOR ALCOHOL, DRUGS AND TOBACCO: Did any of your parents have a problem with using alcohol or drugs? Yes, both parents, alcohol. No treatment. Do any of your friends (peers) have problems with drug or alcohol use? No Does your partner have a problem with drug or alcohol use? No Before you knew you were , how often did you drink beer, wine, wine coolers or liquor or use any kind of drug? Sometimes, 3-4 drinks a week. No drugs. In the past month, how often did you drink beer, wine, wine coolers or liquor or use any kind of drug? Not at all How much did you smoke, vape or use tobacco or nicotine in any form before you knew you were ? Don't Smoke, Vape or use Tobacco Genetic Screening Genetic Screening/Teratology Counseling- Includes patient, baby's father, or anyone in either family with: Patient's age 35 years or older as of estimated date of delivery: No Thalassemia (Spanish, Sinhala, Mediterranean, or background): MCV less than 80: No Neural tube defect (Meningomyelocele, Spina bifida, or Anencephaly): No Congenital heart defect: No Down syndrome: No Bhargav-Sachs (Ashkenazi Buddhism, Cajun, Iranian [place]): No Rolly disease (Ashkenazi Buddhism): No Familial dysautonomia (Ashkenazi Buddhism): No Sickle cell disease or trait (): No Hemophilia or other blood disorders: No Muscular dystrophy: No Cystic fibrosis: No [place]'s chorea: No Intellectual disability and/or autism: No Other inherited genetic or chromosomal disorder: No Maternal metabolic disorder (eg. Type 1 diabetes, PKU): No Patient or baby's father had child with defects not listed above: No Recurrent loss, or a stillbirth: Yes (Comment: Sister of FOB 3 miscarriages) Medications (including supplements, vitamins, herbs, or OTC drugs)/illicit/recreational drugs/alcohol since last menstrual period: No CURRENT MEDICATIONS: Current Outpatient Medications Medication Sig no.167/folic acid/dha (ONE-A-DAY ORAL) Take by mouth. No current facility-administered medications for this visit. Medications have been reviewed by me and are current to the best of my knowledge and ability. ALLERGIES: Patient has no known allergies. OBJECTIVE: Wt 75.2 kg (165 lb 12.8 oz) LMP 10/02/2023 (Exact Date) No results found for: PREGURINE ASSESSMENT/PLAN: ICD-10-CM 1. Encounter for supervision of normal first in first trimester Z34.01 CBC W PLT NO DIFF ANTI HIV 1/2 URINE CULTURE TYPE AND SCREEN VARICELLA ZOSTER IMM ASSY RUBELLA IMMUNE STATUS TREPONEMA PALLIDUM HBSAG (HBS) ANTI HCV CERTIFICATION ENGINEER PROBE - CHLAMYDIA DNA PCR [[id number]] URINALYSIS W REFLEX MICROSCOPIC IF POSITIVE [05908.2] US 1ST TRIMESTER (< 14 weeks) [94439.0] EDUCATION/PATIENT INSTRUCTIONS - Advised patient to start/continue vitamin. - Discussed risk of using alcohol, tobacco, other drugs in . - Discussed healthy lifestyle in . - Provided copy of Beginnings book and book inserts, discussed [id number] medications, and follow up. - Encouraged patient to call clinic at [phone] with any vaginal bleeding, fluid leaking from vagina, severe abdominal pain, nausea with severe vomiting, fever higher than 100.4F, painful urination, headache not relieved by Tylenol, or other concerns - labs completed with today's visit. - Patient informed to schedule 1st trimester dating ultrasound between 7-10 weeks. - Initial OB appointment with FP/OB scheduled. PHQ-9, and COVID-19 vaccine discussion to be completed at this visit. Future Appointments Date Time Provider Department Center 12/19/2023 8:25 AM [facility] .................... 11/13/2023 10:31 AM REAMER Last Filed Vital Signs Vital Sign Reading Time Taken Comments Blood Pressure 114/72 07/02/2024 8:26 AM CDT Pulse 96 07/02/2024 8:26 AM CDT Temperature 36.9 ??C (98.5 ??F) 03/23/2011 2:36 PM CD T Respiratory Rate 13 05/16/2024 11:53 AM CDT Oxygen Saturation 98% 07/02/2024 8:26 AM CDT Inhaled Oxygen Concentration - - Weight 90.5 kg (199 lb 9.6 oz) 07/02/2024 8:26 A M CDT Height 167.6 cm (5' 6) 12/19/2023 8:34 AM HAND REAMER Body Mass Index 32.22 12/19/2023 8:34 AM HAND REAMER Plan of Treatment Upcoming Encounters Date Type Department Care Team (Late st Contact Info) Description 07/11/2024 8:50 AM CDT [facility] [address] [place] [address] Brandi Tirado MD [address] [place] [address] Health Maintenance Due Date Last Done Comments COVID-19 vaccine series (2022- season) 2023 Influenza for age 9-49 07/20/2024 01/11/2007 BMI (ht and wt on same day) for age 18+ 12/19/2024 12/19/2023, 11/13/2023 Depression screening for age 12+ 05/19/2025 05/19/2024 Pap test for age 21-65 01/16/2027 , 01/16/2024 Tetanus booster 04/18/2034 04/18/2024, 12/04/2017, 05/03/2007 HIV for age 15-65 Completed 11/13/2023 Hepatitis C screening for ag e 18-79 Completed 11/13/2023 Tdap Completed 04/18/2024, 12/04/2017, 05/03/2007 Pneumococcal series for age 6-64 Aged Out No longer eligible b ased on patient's age to complete this topic Procedures Procedure Name Priority Date/Time Associated Diagnosis Comments VAGINAL/RECTAL OB STREP PCR Routine 06/13/2024 9:35 AM CDT Encounter for supervision of other normal in third trimester URINALYSIS MICROSCOPIC Routine 05/16/2024 11:58 AM CDT Increased frequency of urination URINE CULTURE Routine 05/16/2024 11:58 AM CDT Increased frequency of urination UA W/ SEDIMENT EXAM REFLEXED PER CRITERIA Routine 05/16/2024 11:58 AM CDT Increased frequency of urination GLUCOSE,GESTATIONAL Routine 04/18/2024 1 1:28 AM CDT Encounter for supervision of other normal in second trimester HEMOGLOBIN Routine 04/18/2024 11:28 AM CDT Encounter for supervision of other normal in second trimester TREPONEMA PALLIDUM Routine 04/18/2024 11 :28 AM CDT Encounter for supervision of other normal in second trimester HPV THIN PREP Routine 01/16/2024 9:25 AM HAND REAMER Cervical cancer screening ANTI HIV 1/2 Routine 11/13/2023 11:28 AM HAND REAMER Encounter for supervision of normal first in first trimester ANTI HCV Routine 11/13/2023 11:28 AM HAND REAMER Encounter for supervision of normal first in first trimester from Last 3 Months or Most Recently Relevant to Health Maintenance Results * VAGINAL/RECTAL OB STREP PCR (06/13/2024 9:35 AM CDT) Vaginal/Rectal OB Strep B PCR Negative 06/15/2024 9:22 AM CDT [facility] Other (Vaginal/Rectal) Non-Blood / Unknown 06/13/2024 9:35 AM CDT 06/13/2024 10:04 AM CDT Brandi Tirado MD [facility]CROBIOLOGY [facility] [address] [place] [id number] * (ABNORMAL) URINALYSIS MICROSCOPIC (05/16/2024 11:58 AM CDT) RBC 0-2 0-2, None Seen /HPF 05/16/2024 12:16 PM CDT [facility] WBC 3-5 0-2, 3-5, None Seen /HPF 05/16/2024 12:16 PM CDT [facility] BACTERIA Many(A) None Seen, Rare, Few Bacteria/H PF 05/16/2024 12:16 PM CDT [facility] EPITHELIAL CELLS Few None Seen, Few Epi/HPF 05/16/2024 12:16 PM CDT [facility] Urine URINE SPECIMEN / Unknown Non-Blood / Unknown 05/16/2024 11:58 AM CDT 05/16/2024 12:07 PM CDT Brandi Tirado MD URINE Performing Organization Address City/[facility]/ZIP Co de Phone Number [facility] [address] [place] [address], * URINE CULTURE (05/16/2024 11:58 AM CDT) CULTURE <10,000 CFU/mL multiple organisms 05/18/2024 11:27 AM CDT [facility] Urine URINE SPECIMEN / Unknown Non-Blood / Unknown 05/16/2024 11:58 AM CDT 05/16/2024 12:07 PM CDT Brandi Tirado MD MICROBIOLOGY [facility] [address] [address], * (ABNORMAL) UA W/ SEDIMENT EXAM REFLEXED PER CRITERIA (05/16/2024 11:58 AM CDT) COLOR Yellow Yellow Color 05/16/2024 12:16 PM CDT [facility] CLARITY Clear Clear Clarity 05/16/2024 12:16 PM CDT [facility] SPECIFIC GRAVITY,URINE 1.025 1.010, 1.015, 1.020, 1.025 05/16/2024 12:16 PM CDT [facility] PH,URINE 6.5 6.0, 7.0, 8.0, 5.5, 6.5, 7.5, 8.5 05/16/2024 12:16 PM CDT [facility] UROBILINOGEN, QUALITATIVE Normal Normal EU/dl 05/16/2024 12:16 PM CDT [facility] PROTEIN, URINE Negative Negative mg/dL 05/16/2024 12:16 PM CDT [facility] GLUCOSE, URINE Negative Negative mg/dL 05/16/2024 12:16 PM CDT [facility] KETONES,URINE Negative Negative mg/dL 05/16/2024 12:16 PM CDT [facility] BILIRUBIN,URI NE Negative Negative 05/16/2024 12:16 PM CDT [facility] OCCULT BLOOD,URINE Negative Negative 05/16/2024 12:16 PM CDT [facility] NITRITE Negative Negative 05/16/2024 12:16 PM CDT [facility] LEUKOCYTE ESTERASE Trace(A) Negative 05/16/2024 12:16 PM CDT [facility] Urine URINE SPECIMEN / Unknown Non-Blood / Unknown 05/16/2024 11:58 AM CDT 05/16/2024 12:07 PM CDT Brandi Tirado MD URINE [facility] [address] [place] [address], * TREPONEMA PALLIDUM (04/18/2024 11:28 AM CDT) TREPONEMA PALLIDUM Non-Reacti ve Non-Reacti ve 04/18/2024 11:40 PM CDT [facility] Blood BLOOD SPECIMEN / Unknown Venipuncture / Unknown 04/18/2024 11:28 AM CDT 04/18/2024 11:30 AM CDT Brandi Tirado MD SEND OUTS [facility] [address] [place] [address], * HEMOGLOBIN (04/18/2024 11:28 AM CDT) HEMOGLOBIN 12.3 12.0 - 16.0 g/dL 04/18/2024 11:34 AM CDT [facility] MCV 92 80 - 100 fL 04/18/2024 11:34 AM CDT [facility] Blood BLOOD SPECIMEN / Unknown Venipuncture / Unknown 04/18/2024 11:28 AM CDT 04/18/2024 11:30 AM CDT Brandi Tirado MD HEMATOLOGY Performing Organization Address [facility]/ZIP Co de Phone Number [facility] [address] [place] [address], * GLUCOSE,GESTATIONAL (04/18/2024 11:28 AM CDT) GLUCOSE,GESTAT IONAL 74 70 - 139 mg/dL 04/18/2024 11:37 AM CDT [facility] Blood BLOOD SPECIMEN / Unknown Venipuncture / Unknown 04/18/2024 11:28 AM CDT 04/18/2024 11:30 AM CDT Brandi Tirado MD CHEMISTRY Performing Organization Address City/[facility] Co de Phone Number [facility] [address] [place] [address], * (ABNORMAL) HPV HIGH RISK (01/16/2024 9:25 AM HAND REAMER) TYPE 16 Negative Negative 01/21/2024 5:21 PM HAND REAMER [facility] TYPE 18 Negative Negative 01/21/2024 5:21 PM HAND REAMER [facility] OTHER HIGH RISK TYPES Positive(A) Negative 01/21/2024 5:21 PM HAND REAMER [facility] Other (Cervical) Non-Blood / Unknown 01/16/2024 9:25 AM HAND REAMER 01/17/2024 1:50 PM HAND REAMER Narrative [facility] - 01/21/2024 5:21 PM HAND REAMER Specimen is positive for the DNA of any one of, or combination of, the following high risk HPV types: 31, 33, 35, 39, 45, 51, 52, 56, 58, 59, 66, 68. HPV types 16 and 18 DNA were undetectable or below the pre-set threshold. ? Methodology: Dayanara Zita 4800 HPV Test Brandi Tirado MD MICROBIOLOGY Performing Organization Address [facility] Co de Phone Number [email or web address] [address] [place] [address], * ANTI HCV (11/13/2023 11:28 AM HAND REAMER) Pathologist [facility] HEPATITIS C ANTIBODY Non-Reacti ve Non-React karen 11/13/2023 9:23 PM HAND REAMER [facility] Comment:Please note, per www .CDC.gov: If a patient is known to be at high risk of HCV infection, or is symptomatic, and the physician's suspicion of HCV infection is high, HCV RNA testing is often employed and is of diagnostic value, even after an initial negative anti-HCV test result. Blood BLOOD SPECIMEN / Unknown Venipuncture / Unknown 11/13/2023 11:28 AM HAND REAMER 11/13/2023 11:29 AM HAND REAMER Brandi Tirado MD SEND OUTS Performing Organization Address [facility] Co de Phone Number [email or web address] [address] [place] [address], * ANTI HIV 1/2 (11/13/2023 11:28 AM HAND REAMER) [facility] HIV-1/HIV-2 SCREEN Non-Reacti ve Non-Reacti ve 11/13/2023 9:21 PM HAND REAMER [facility] Comment:HIV-1 p24 and HIV-1/ HIV-2 Ab Not Detected. Blood BLOOD SPECIMEN / Unknown Venipuncture / Unknown 11/13/2023 11:28 AM HAND REAMER 11/13/2023 11:29 AM HAND REAMER Brandi Tirado MD SEND OUTS Performing Organization Address [facility] Co de Phone Number [facility] [address] [place] [address], from Last 3 Months or Most Recently Relevant to Health Maintenance Care Teams Frame Catcher Relationship Specialty Start Date End Date Brandi Tirado MD [address] [place] [address] PCP - General Family Practice 05/06/24 Abraham Stevenson MD [address] [place] [address] 11/01/23
[2024-07-03 17:27] VITALS: BMI 32.3
--- NOTE | 2024-07-03 17:45 | P.OBHP_ITS ---
OB - H&P: HPI Labor/Induction History of Present Illness Date Seen: 07/03/24 Chief Complaint: The patient is a 29 year old 1 para 0 at 39+2 weeks gestation by LMP and confirmed with 1st trimester US, who presents for elective induction at term. Chief complaint: Elective IOL Narrative: Marlo Hearn is a 29 year old at 39+2 weeks for elective induction at term. has been uncomplicated. She is GBS negative, rubella immune, blood type A+. She has been having no contractions. Baby is active. no LOF. History of Present Dating criteria: based on LMP care: good care Ultrasounds: normal 1st trimester US and normal mid trimester US Abnormal ultrasound findings: Choroid plexus cyst at 20 week US, follow up US with MFM it was resolved. Medical complications: none Labs Blood type: A (+) positive Rubella: immune RPR/VDLR: nonreactive GBS status: negative HBsAG: negative Review of Systems Status of ROS: Reports: 10 or more systems reviewed and unremarkable except as noted in History and below Meds Home Medications and Allergies Home Medications ?Medication ?Instructions ?Recorded ?Confirmed ?Type escitalopram oxalate 5 mg tablet 5 mg PO QAM 07/03/24 07/03/24 History vit no.95-ferrous 2 tab PO DAILY 07/03/24 07/03/24 History fumarate 28 mg-folic acid 800 mcg tablet () Allergies Allergy/AdvReac Type Severity Reaction Status Date / Time No Known Drug Allergies Allergy Verified 07/03/24 17:19 OB - H&P: Exam Constitutional: Constitutional: no acute distress Routine HEENT Exam: Head: Present atraumatic Eye: Present EOMI and PERRL ENT: Present mucous membranes moist Routine Neck Exam: Neck: Present full ROM Routine Respiratory Exam: Respiratory: Present CTA bilaterally Routine Cardiovascular Exam: Cardiovascular: RRR Routine Exam: Perineum Description: Normal Detailed Labor and Delivery Exam: Patient Gravid: Yes Dilation (cm): 1 Effacement (%): 80 Cervix position: mid Consistency: soft Cervical ripeness score: 7 Fetus (Single): Station: -2 Amniotic Membrane Status: intact Heart Rate Baseline: 130 Monitor Accelerations: Present Monitor Decelerations: None Medical Lab Technologist Variability: Moderate (6-25) Routine Extremities Exam: Comments: no edema Routine Back/Spine/Pelvis Exam: Back/Spine: full ROM Routine Skin Exam: Present intact Routine Neurological Exam: Present alert, oriented X3 and normal reflexes Routine Psychiatric Exam: Present normal affect and normal thought process OB - Problem Based A/P Additional Plan (1) Depression: Status: Acute (2) Term : Status: Acute Plan Cook catheter placed. Pitocin per procotol starting at 2100. Likely AROM in AM. Delivery/Labor/Induction Plan Plan: induction Induction method: Intracervical balloon catheter (placed without difficult with 60 mL in both the intrauterine and intravaginal balloons. )
[2024-07-03 17:53] VITALS: PULSE 86; O2SAT 93
[2024-07-03 17:54] VITALS: BP 132/79; PULSE 85; RESP 16; TEMP 37.3
[2024-07-03 20:36] LABS: Basophils Absolute Auto 0.01 K/uL (0.00-0.30); Basophils Percent Auto 0.1 % (0.0-3.0); Eosinophils Absolute Auto 0.04 K/uL (0.00-0.50); Eosinophils Percent Auto 0.4 % (0.0-7.0); Hematocrit 38.4 % (33.0-51.0); Hemoglobin* 12.4 gm/dL (12.0-16.0); Immature Granulocytes Abs Auto 0.09 K/uL (0.00-0.30); Immature Granulocytes Pct Auto 0.9 %; Lymphocytes Absolute Auto 2.31 K/uL (0.90-2.90); Lymphocytes Percent Auto 23.5 % (20-44); Mean Corpuscular HGB Conc 32 gm/dL (32-36); Mean Corpuscular Hemoglobin 29 pg (26-34); Mean Corpuscular Volume 91 fL (80-100); Neutrophils Absolute Auto 6.48 K/uL (1.7-7.0); Neutrophils Percent Auto 66.1 % (42.0-72.0); Platelet Count* 194 K/uL (140-440); RDW Coefficient of Variation % 13.3 % (11.5-15.5); Red Blood Count 4.24 m/uL (4.00-5.20); White Blood Count* 9.81 K/uL (4.50-11.00)
[2024-07-03 20:41] LABS: Slide Review Reflex No
[2024-07-03 20:53] VITALS: BP 130/76; PULSE 69
[2024-07-03] MEDS: LACTATED RINGERS 1000 ML 1,000 ML 125 ML IV (20:59)
[2024-07-03] MEDS: OXYTOCIN 30 unit/500 ML in NS 30 UNIT/500 ML BAG IVPB (21:00)
[2024-07-03 21:02] VITALS: TEMP 36.9
[2024-07-03 22:03] VITALS: BP 111/57; PULSE 81
[2024-07-03] MEDS: hydrOXYzine pamoate 25 MG CAPSULE 100 MG PO (22:20)
[2024-07-03 22:54] VITALS: BP 125/58; PULSE 72; TEMP 36.8
[2024-07-04] VITALS (31 sets, daily range): BP systolic 98–154; BP diastolic 51–75; PULSE 60–109; RESP 18; TEMP 36.4–37; O2SAT 92–99
[2024-07-04] MEDS: LACTATED RINGERS 1000 ML 1,000 ML 125 ML IV (05:10)
--- NOTE | 2024-07-04 07:32 | PM.OBPNL ---
Subjective Date Seen: 07/04/24 Narrative: Marlo is a 29 yo at 39+3 weeks here for elective induction at term. She had successful placement of a cook catheter last evening and this was removed at 0530 this morning. She had a restless night, but is not feeling much discomfort from contractions. She underwent AROM at 0730 with return of small amount of clear fluid. Objective Vital Signs: Last Vital Signs Temp 98.3 F 07/04/24 05:11 Pulse 69 07/04/24 07:29 Resp 16 07/03/24 17:54 BP 129/75 07/04/24 07:29 Pulse Ox 93 07/03/24 17:53 Pelvic Exam Dilation (cm): 5.5 Effacement (%): 80 Station: -2 Contractions Monitor mode: External Contraction Frequency: 2-3 Contraction pattern: Regular Contraction intensity: Mild Pitocin Rate (mU/min): 6 Assessment Assessment: induction ongoing Station: -2 Amniotic Membrane Status: AROM Status: Category l Heart Rate Baseline: 140 Aeronautical Design Engineer Variability: Moderate (6-25) Monitor Accelerations: Present Monitor Decelerations: None Plan Plan: Continue pitocin per protocol. Patient desires an epidural for labor analgesia, she will request when ready. Anticipate .
[2024-07-04] MEDS: ONDANSETRON 2 MG/ML inj 4 MG IV (09:28)
[2024-07-04] MEDS: fentaNYL 100 MCG/2 ML inj IVP (09:41)
[2024-07-04] MEDS: OXYTOCIN 30 unit/500 ML in NS 30 UNIT/500 ML BAG 300 UNIT IVPB (11:46)
--- NOTE | 2024-07-04 12:10 | W.PM.VAGD1_ITS ---
Procedure Delivery date: 07/04/24 Procedure Done: Global Intrapartal Events: None Delivery augmentation: rupture of membranes Delivery monitor: external FHT Route of delivery: Episiotomy description: None Laceration description: Labial Estimated blood loss (mL): 250 Anesthesia type: None Disposition: floor Narrative: The patient is a 29 year-old admitted on 07/03/2024 at 39 Weeks, 2 Days gestation for elective induction at term.? Cervical exam on admission was 1 cm/80 % effaced/-2 station with membranes intact in vertex presentation.? Contractions were absent.? heart rate demonstrated baseline 140 bpm with moderate variability, + accelerations, - decelerations; a category 1 tracing. She had a [employer] catheter placed 1730 on 07/03 which was then removed at 0530 on 07/04 at which time she was 5.5/80/-2. ? AROM occurred at 0726 with clear fluid. ? Labor Analgesia:? Fentanyl ? Pitocin:? yes ? Labor onset:? 0820 ? Complete:? 1046 ? Pushing:? 1046 ? heart tones during second stage were category1. ? At 1144 a viable male delivered in vertex OA presentation over intact perineum via spontaneous vaginal delivery.? Infant was placed on maternal abdomen.? Cord was clamped and cut after a 30-60 second delay.? Nose and mouth were bulb suctioned.? Infant weight pending.? 8 at 1 minute and 9 at 5 minutes.? Shoulder dystocia: no.? Nuchal cord: no. ? Placenta delivered spontaneously and complete at 1149 with a 3 vessel cord. ? Mother and infant were stable after delivery. ? Lacerations:? 1st degree right labial, not requiring repair. ? Blood loss: 250 mL. Blood loss measurement type: QBL ? Sponge and needles counts are correct.
[2024-07-04] MEDS: ESCITALOPRAM 10 MG TABLET 5 MG PO (13:05)
[2024-07-04] MEDS: IBUPROFEN 600 MG TABLET PO ×2 (14:08→20:31)
[2024-07-04] MEDS: ACETAMINOPHEN 500 MG TABLET 1000 MG PO (16:21)
[2024-07-05 00:15] VITALS: BP 115/78; PULSE 86; RESP 16; TEMP 36.8; O2SAT 98
[2024-07-05] MEDS: ACETAMINOPHEN 500 MG TABLET 1000 MG PO ×2 (00:29→09:10)
[2024-07-05 04:09] VITALS: BP 114/78; PULSE 66; RESP 16; TEMP 36.7; O2SAT 98
[2024-07-05] MEDS: IBUPROFEN 600 MG TABLET PO ×2 (07:14→15:30)
[2024-07-05 09:01] VITALS: BP 110/66; PULSE 78; RESP 16; TEMP 36.8; O2SAT 95
[2024-07-05] MEDS: DOCUSATE SODIUM 100 MG CAPSULE PO (09:10)
[2024-07-05] MEDS: ESCITALOPRAM 10 MG TABLET 5 MG PO (09:10)
--- NOTE | 2024-07-05 09:21 | P.OBPN_ITS ---
OB - PN:Subj Subjective Time Seen by Provider: 09:21 Date Seen: 07/05/24 Narrative: PPD #1 after at 1144 on 07/04. No perineal repair. Tired, but otherwise doing well. Struggling a little with . Nipples sore. Lochia is moderate. Urinating normally. Passing flatus. OB - PN: Obj Exam Physical Exam: Vital signs: Temp Pulse Resp BP Pulse Ox O2 Del Method 98.2 F 78 16 110/66 95 Room Air 07/05/24 09:01 07/05/24 09:01 07/05/24 09:01 07/05/24 09:01 07/05/24 09:01 07/05/24 09:01 Narrative: General appearance: Well-appearing adult female. Alert, oriented and appropriate. Sitting up in hospital bed. HEENT: EOMI, no conjunctival injection or discharge. MMM. Neck: Supple. CV: RRR, no rubs, murmurs or extra heart sounds. Pulm: CTAB, no wheezes, rales or rhonchi. Abdomen: Soft, non-tender. Fundus palpated 1 cm above the umbilicus. MSK: Moving all extremities. Ext: Warm and well-perfused. Trace LE edema. Skin: No rashes appreciated over exposed skin. Neuro: Grossly normal strength and sensation. No focal deficits. Psych: Normal affect. 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 Status: Acute Assessment and Plan: - Mood stable (2) Term : Problem details: at 39+3 weeks. No repair. Status: Acute Assessment and Plan: - Normal post cares - PP hemoglobin 10 - Continue to work on - Anticipate discharge 07/06
[2024-07-05 17:24] VITALS: BP 118/69; PULSE 82; RESP 16; TEMP 36.6; O2SAT 98
[2024-07-05 17:26] LABS: Rapid Plasma Reagin (RPR) Non Reactive (Non Reactive)
[2024-07-06 01:29] VITALS: BP 111/70; PULSE 71; RESP 18; TEMP 36.8; O2SAT 99
[2024-07-06 08:17] VITALS: BP 113/71; PULSE 85; RESP 16; TEMP 36.8; O2SAT 97
[2024-07-06] MEDS: ACETAMINOPHEN 500 MG TABLET 1000 MG PO (08:24)
[2024-07-06] MEDS: DOCUSATE SODIUM 100 MG CAPSULE PO (08:25)
[2024-07-06] MEDS: ESCITALOPRAM 10 MG TABLET 5 MG PO (08:25)
--- NOTE | 2024-07-06 09:38 | PM.OBDSVD1 ---
DS: Providers Provider Time Seen by Provider: 09:39 Date Seen: 07/06/24 Date of admission: 07/03/24 17:10 Primary care physician: Brandi Tiardo MD Admitting Clinician: Brandi Tirado MD Attending Physician on discharge: Brandi Tirado MD Date of Discharge: 07/06/24 DS: Diagnosis Discharge Diagnosis (1) Term : Status: Acute Problem details: at 39+3 weeks. No repair. 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 Exam Narrative: Exam Narrative: General appearance: Well-appearing adult female. Alert, oriented and appropriate. Sitting up in hospital bed. HEENT: EOMI, no conjunctival injection or discharge. MMM. Neck: Supple. CV: RRR, no rubs, murmurs or extra heart sounds. Pulm: CTAB, no wheezes, rales or rhonchi. Abdomen: Soft, non-tender. Fundus palpated at the umbilicus. MSK: Moving all extremities. Ext: Warm and well-perfused. No LE edema. Skin: No rashes appreciated over exposed skin. Neuro: Grossly normal strength and sensation. No focal deficits. Psych: Normal affect. Const: Vital Signs, click to edit/add: Vital Signs - 24 hr 07/05/24 17:24 07/06/24 01:29 07/06/24 08:17 Temperature 98 F 98.2 F 98.3 F Pulse Rate [Pulse Oximeter] 82 71 85 Respiratory Rate 16 18 16 Blood Pressure [Ri ght Arm] 118/69 111/70 113/71 Pulse Oximetry 98 99 97 Oxygen Delivery Me thod Room Air Room Air Room Air OB - DS: Summary Hospital Course Hospital Course: The patient is a 29 year old G 1 P 0 at 39+3 weeks gestation that was admitted to the Center on 07/03/24 for elective IOL. She had an uncomplicated vaginal delivery. She delivered a viable male . She is breast feeding. the patient has done well. Peripartum Data delivery method: Vaginal Laceration description: Labial (first degree, not repaired) Episiotomy description: None complications: none Gender: Male Status at Discharge Functional status at discharge: independent ambulation Overall status at discharge: patient is progressing back to baseline Time Spent with Patient Time attestation: Total time spent providing and/or coordinating discharge services: Time spent: Less than 30 minutes Discharge Plan Discharge Disposition: Home, Self-Care Date of Admission: 07/03/24 17:10 Attending Provider on Discharge: Carla Betts Primary Care Provider: Brandi Tirado Condition: Stable Anticipated Discharge Date/Time: 07/06/24 08:54 Discharge Medications: New acetaminophen 500 mg Tablet 1,000 mg PO Q6H PRNQty: 30 0RF docusate sodium 100 mg Capsule 100 mg PO DAILY Qty: 30 0RF ibuprofen 600 mg Tablet 600 mg PO Q6H PRNQty: 30 0RF Continued escitalopram oxalate 5 mg tablet 5 mg PO QAM PNV cmb#95-ferrous fumarate-FA [] 28 mg iron- 800 mcg tablet 2 tab PO DAILY Discharge Orders: Discharge Order (Routine); Ordered 07/06/24 Ordered By: Carla Betts Patient Education: OB Vaginal/Breast Feeding Activity Level: Activity as Tolerated Discharge Diet: Regular Follow Up Appointments: Brandi Tirado MD [Primary Care Provider] - (6 week post- appointment) Forms: [facility] [place] Info Instructions
== END 2024-07-06 10:45 | disposition home or self-care (01) | DRG 560 ==
PROVIDERS: Admitting Provider Family Medicine; PCP Family Medicine; Visit Provider Family Medicine
DX: O70.0 First degree perineal laceration during delivery (principal); O99.344 Other mental disorders complicating childbirth; F32.A Depression, unspecified; Z3A.39 39 weeks gestation of pregnancy; Z37.0 Single live birth
CPT/HCPCS: 36415; 59200; 85018; 85025; 86592; 86850; 86900; 86901; A9270; C1726; J2405; J3010; J7120

== ENCOUNTER 2024-07-07 14:13 | Outpatient (CLI) | payer BC, SELFPAY ==
--- OUTSIDE RECORDS SUMMARY | 2024-07-07 14:19 | XMS_ITS | Clinical Summary ---
[facility] Address [address], [place] [address] Care Team Providers Care Artificial Cherry Maker Name Role Phone Nathalie Galvan PA-C Primary Care Provider + [phone] Source Comments You are receiving this document as you are listed as the primary care provider,follow-up provider, or the patient has been referred to you for consultation.This is in compliance with the Medicare and[facility] EHR Incentive Program,which states Providers who transition their patient to another setting of careor provider of care or refers their patient to another provider of care shouldprovide summary care record for each transition of care or referral. [facility] Allergies No known active allergies Medications [...] Health Maintenance Due Date Last Done Comments MTM Covered 1995 Adult Preventive Visit 09/20/2022 , 11/22/2018, 12/04/2017, [...] YEARS & OLDER) Routine 01/18/2022 1:40 PM FAMILY PHYSICIAN Vaginal itching PAP TEST Routine 09/20/2020 9:51 AM FAMILY PHYSICIAN Screening for malignant neoplasm of cervix from Last 3 Months or Most Recently Relevant to Health Maintenance Results * HIV 1/2 Ag/Ab 4th Generation (04/26/2022 3:25 PM CDT) HIV 1/2 Antigen/Antib yuval (4th generation) Negative (Non Reactive) Negative (Non Reactive) 04/26/2022 8:26 PM CDT [facility] Comment:HIV-1 p24 Antigen an d HIV-1/HIV-2 Antibody not detected Blood Venipuncture / Unknown 04/26/2022 3:25 PM CDT 04/26/2022 3:25 PM CDT Nathalie Galvan PA-C LAB_1 [facility] [address] * Hepatitis C Virus Jenn with Reflex (04/26/2022 3:25 PM CDT) Hepatitis C Antibody Negative (Non Reactive) Negative (Non Reactive) 04/26/2022 8:45 PM CDT [facility] Comment:Antibodies to HCV no t detected. Does not exclude the possiblity of exposure to HCV. Blood Venipuncture / Unknown 04/26/2022 3:25 PM CDT 04/26/2022 3:25 PM CDT Nathalie Galvan PA-C LAB_1 [facility] [address] * Chlamydia and GC STD (01/18/2022 1:40 PM FAMILY PHYSICIAN) Chlamydia Trachomatis STD Not Detected Not Detected 01/19/2022 12:06 PM FAMILY PHYSICIAN [facility] N. gonorrhoeae STD Not Detected Not Detected 01/19/2022 12:06 PM FAMILY PHYSICIAN [facility] Swab STD SPECIMEN FROM VAGINA / Unknown Non-blood Collection / Unknown 01/18/2022 1:40 PM FAMILY PHYSICIAN 01/18/2022 3:48 PM FAMILY PHYSICIAN Narrative [facility] - 01/19/2022 12:06 PM FAMILY PHYSICIAN Test performed by Data Conversion Operator Mediated Amplification (TMA). Nathalie Galvan PA-C LAB_1 Performing Organization Address [facility] Co de Phone Number [facility] [address] [phone] * PAP Test (09/20/2020 9:51 AM FAMILY PHYSICIAN) Case Report Pap ? Case: [id number] ? Authorizing Provider: ??Faith Carr APRN, EDDA Collected: ? 09/20/2020 0951 ? Ordering Location: ? [facility] ?? Received: ?09/20/2020 1039 ? First Screen: ?Vanessa Moct[place] CT (ASCP) ? Specimen: ?Pap Test, Routine, Cervix/Endocervix ? 09/24/2020 10:07 AM [facility] Pap Specimen Adequacy Satisfactory for evaluation, endocervical/ramsay sformation zone component absent. 09/24/2020 10:07 AM [facility] Pap Interpretation Negative for intraepithelial lesion or malignancy (NILM). 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 09/24/2020 10:07 AM [facility] Pap Disclaimer The Pap test is a screening test designed to aid in the detection of cervical cancer and its precursor lesions. It is not a diagnostic procedure and should not be used as the sole means of detecting cervical cancer. Both false-positive and false-negative results may occur. 09/24/2020 10:07 AM [facility] Gross Description The specimen is received in SurePath fixative and properly labeled. 1 Pap-stained SurePath slide is prepared. 09/24/2020 10:07 AM [facility] Embedded Images 0 10:07 AM [facility] Other Specimen Type ENTIRE ENDOCERVIX / Unknown 09/20/2020 9:51 AM FAMILY PHYSICIAN 09/20/2020 10:39 AM [facility] PH[facility]IC[facility] Comment:LMP: Patient's last menstrual period was 09/14/2020 (approximate). Faith Carr APRN, [facility] Performing Organization Address City/State/[facility] Co de Phone Number [address] [address], [facility] [phone] from Last 3 Months or Most Recently Relevant to Health Maintenance Advance Directives * Full Code (Latest Code Status on File) Date Activated Date Inactivated Comments 04/20/2022 3:18 PM 2022 1:13 PM Question Answer Comments On Admission, Code status was determined by: Dis cussed with patient/family Care Teams Artificial Cherry Maker Relationship Specialty Start Date End Date Nathalie Galvan PA-C [address] [place] [address] PCP - General Physician Group Therapy Counselor 08/23/22
--- OUTSIDE RECORDS SUMMARY | 2024-07-07 14:19 | XMS_ITS | Clinical Summary ---
Author Organization [facility] Address [place], [place] [address] Care Team Providers Care Vacuum Pan Tender Name Role Phone Abraham Stevenson MD Unavailable [phone] Brandi Tirado MD Primary Care Provider [...] Date Diagnosed Date Choroid plexus cyst 03/06/2024 [facility] Supervision of high-risk Overview: Marlo Hearn : 1995 [facility] ULTRASOUND/TESTING PATIENT Support person name: Anselmo ULTRASOUND [...] REFERRING PROVIDER/CLINIC: Brandi Tirado MD - Musa Jofield Primary MD approves scheduling of recommended ultrasounds/testing: [...] Encounters Date Type Department Care Team Description 07/05/2024 Orders Only [facility] Scanner 1 scan: (1-Ord) [facility], HGB, 07/05/2024 07/03/2024 Orders Only [facility] Scanner 1 scan: (1-Ord) [facility], LAB RESULTS, 07/03/2024 07/02/2024 8:25 AM CDT OB Encounter [address] [address] Brandi Tirado MD Care (39w1d ) 07/02/2024 Travel 07/01/[address] [address] Brandi Tirado MD Appointment Request (APPT REQUEST PRIOR TO 8-16 IF POSSIBLE ) 06/30/2024 Travel 06/27/2024 8:45 AM CDT OB Encounter [address] [address] Lainey Casey DO Care (38 weeks 3 days) 06/27/2024 Travel 06/23/2024 Travel 06/20/2024 8:50 AM CDT OB Encounter [address] [place] [address] Brandi Tirado MD Care (37w 3d/Anxiety is pretty high right now) 06/20/2024 Travel 06/16/2024 Travel 06/13/2024 9:15 AM CDT OB Encounter [address] [facility] [address] Brandi Tirado MD Care (36w 3d) 06/13/2024 Travel 06/10/2024 Travel 05/29/2024 11:45 AM CDT OB Encounter [facility] [address] [place] [address] Brandi Tirado MD Care (34w 2d/) 05/28/2024 Travel 05/16/2024 11:45 AM CDT OB Encounter [facility] [address] [facility] [address] Brandi Tirado MD Care (32 wks 3 days/might have yeast infection-- itchy and feeling like needing to pee more than normal and pain /) 05/16/2024 Travel 05/01/2024 3:15 PM CDT OB Encounter [facility] [address] [place] [address] Brandi Tirado MD Care (30 wks 2 days bacne has been getting worse and painful would like to talk about that) 05/01/2024 Travel 04/18/2024 10:30 AM CDT OB Encounter [facility] [address] [place] [address] Brandi Tirado MD Care (28w 3d/) 04/18/2024 [...] Estimated Date of Delivery 11/13/2023 - Present (07/07/2024) 07/08/2024 (set by Erica Mcdaniel RN on 11/13/2023 based on Alternate HORTENCIA Entry) Dating Summary Based On HORTENCIA GA Diff Last Menstrual Period on 10/02/2023 (Exact Date) 07/08/2024 Same Alternate HORTENCIA Entry 07/08/2024 Working Vitals Pregravid Weight Height TWG (As of 07/07/2024) Pregrav id BMI 1.676 m (5' 6) [...] 07/02/2024 8:36 AM Progress Notes - OB Encounte r - 06/27/2024 - GA:38w3d 06/27/2024 - 38w3d - Lainey Casey DO Patient is here for routine care at 38w3d -specific issues: None Concerns today: has had a few [place] contractions; nothing particularly painful or consistent. [...] r - 06/20/2024 - GA:37w3d 06/20/2024 - 37w3d - Brandi Tirado MD SUBJECTIVE: Marlo Hearn [...] or leaking fluid. RTC 2 weeks with VLADIMIR Tirado MD .................... 05/29/2024 12:01 PM Progress [...] at 30+2 weeks. Went to ER in [place], [place] while vacationing due to decreased movement. [...] r - 03/21/2024 - GA:24w3d 03/21/2024 - - Brandi Tirado MD SUBJECTIVE: Marlo [...] counter - 03/06/2024 - GA:22w2d 03/06/2024 - - Brice Corrigan MS, [facility] / Clinic Note Genetic Counseling RE: Marlo Hearn : 1995 MR: [id number] Referred By: Brandi Tirado MD Indication for [...] it is called a choroid plexus cyst (MARKETING ENGINEER cyst). MARKETING ENGINEER cysts are not harmful and frequently go away by 30 weeks of . Most often MARKETING ENGINEER cysts occur as the only finding in a and are not associated with an increased level of concern. When MARKETING ENGINEER cysts are seen in association with other [...] in a high risk center such as [facility]. If concerning findings are noted by ultrasound, further tests will be recommended. If the ultrasound results are reassuring yet the patient still wants more information, cell free DNA testing or amniocentesis can be considered. Reassuringly, Marlo already had a low risk NIPT and the remainder of the MARKETING ENGINEER appeared to be an isolated finding. Plan: Marlo will proceed with the level II ultrasound today. See ultrasound report for details. Thank you for allowing us to participate in your patient's care. Please do not hesitate to contact me at [phone] with any additional questions or concerns. Sincerely, Reed Corrigan MS, CGC Licensed Genetic Counselor Total time: 30 minutes in person [facility] - [address], [address] [place] [address] 03/06/2024 - 22w2d - Senthil Knapp MD MPP Ultrasound Visit Your patient had an ultrasound with [facility] on 03/06/2024. The report is ready and can be found in the [facility]. Recommendations regarding further care are listed [...] the patient. An isolated choroid plexus cyst (MARKETING ENGINEER) was found on today's ultrasound. Today's findings are reassuring. CPCs have been associated with trisomy 18, however, most fetuses with an isolated choroid plexus cyst are euploidic, and, in fact, about 2-4% of normal fetuses have CPCs. An isolated MARKETING ENGINEER in a low risk patient with an [...] PM New government regulations related to the [employer] act require that this note be released to the patient immediately, sometimes before the referring provider has been contacted. A portion of the information was presented verbally to the patient. The remainder is submitted as background for the referring provider, to be discussed as needed. Medical Decision Making: Consult 30 min Low Level [address] Limited number/complexity of problems including resolved MARKETING ENGINEER Limited amount of data including review of [...] Brandi Tirado MD .................... 01/16/2024 9:43 AM ERENCE MANAGER Progress Notes - OB Encounte r - 12/19/2023 - GA:11w1d 12/19/2023 - 11w1d - Brandi Tirado MD Images from the [...] sex of baby in an envelope to forklift picker. AMA: no Previous : no OB [...] of normal first in first trimester Z34.01 [place] COLLECTION VENOUS BLOOD VENIPUNCTURE 2. Screening for cervical cancer Z12.4 TABLE WORKER THIN PREP PAP SCREEN IMAGED [EIO7889K] Satisfactory exam. Demonstrates appropriate and health-seeking behaviors [...] needed in or . 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 Name of Partner or Father of baby: [...] of estimated date of delivery: No Thalassemia (Israeli, Guyanese, Mediterranean, or background): MCV less than 80: No Neural tube defect (Meningomyelocele, Spina bifida, or Anencephaly): No Congenital heart defect: No Down syndrome: No Bhargav-Sachs (Ashkenazi Evangelical, Cajun, Malay [place]): No Rolly disease (Ashkenazi Evangelical): No Familial dysautonomia (Ashkenazi Evangelical): No Sickle cell disease or trait (): No Hemophilia or other blood disorders: No Muscular dystrophy: No Cystic fibrosis: No Yauco's chorea: No Intellectual disability and/or autism: No [...] STATUS TREPONEMA PALLIDUM HBSAG (HBS) ANTI HCV TABLE WORKER PROBE - CHLAMYDIA DNA PCR [CZH6129] URINALYSIS W REFLEX MICROSCOPIC IF POSITIVE [06809.2] US 1ST TRIMESTER (< 14 weeks) [61883.0] EDUCATION/PATIENT INSTRUCTIONS - Advised patient to start/continue vitamin. - Discussed risk of using alcohol, tobacco, other drugs in . - Discussed healthy lifestyle in . - Provided copy of Beginnings book and book inserts, discussed ukvd-[id number]-wnpozbt medications, and follow up. - Encouraged patient to call clinic at [phone] with any vaginal bleeding, fluid leaking from [...] Center 12/19/2023 8:25 AM [facility]ado MD [facility] MCDANIEL RN .................... 11/13/2023 10:31 AM ERENCE MANAGER Last Filed Vital Signs Vital Sign Reading [...] 167.6 cm (5' 6) 12/19/2023 8:34 AM CONFERENCE MANAGER Body Mass Index 32.22 12/19/2023 8:34 AM CONFERENCE MANAGER Plan of Treatment Upcoming Encounters Date Type Department Care Team (Late st Contact Info) Description 07/11/2024 8:50 AM CDT OB Encounter [facility] [address] [place] [address] Brandi Tirado MD [address] [place] [address] Health Maintenance Due Date Last Done Comments COVID-19 vaccine series ( season) 2023 Influenza for age 9-49 07/20/2024 [...] Procedure Name Priority Date/Time Associated Diagnosis Comments SCAN-LABORATORY REPORT 07/05/2024 12:00 AM CDT SCAN-LABORATORY REPORT 07/03/2024 12:00 AM CDT VAGINAL/RECTAL OB STREP PCR Routine 06/13/2024 9:35 [...] HPV THIN PREP Routine 01/16/2024 9:25 AM CONFERENCE MANAGER Cervical cancer screening ANTI HIV 1/2 Routine 11/13/2023 11:28 AM CONFERENCE MANAGER Encounter for supervision of normal first in first trimester ANTI HCV Routine 11/13/2023 11:28 AM CONFERENCE MANAGER Encounter for supervision of normal first in first trimester from Last 3 Months or Most Recently Relevant to Health Maintenance Results * SCAN-LABORATORY REPORT (07/05/2024 12:00 AM CDT) Only the most recent of2 resultswithin the time period is included. Scanner OTHER * VAGINAL/RECTAL OB STREP PCR (06/13/2024 9:35 AM CDT) Vaginal/Rectal OB Strep B PCR Negative 06/15/2024 9:22 AM CDT [facility] Other (Vaginal/Rectal) Non-Blood / Unknown 06/13/2024 9:35 AM CDT 06/13/2024 10:04 AM CDT Brandi Tirado MD MICROBIOLOGY [facility] [address] [place] [address], [place] * (ABNORMAL) URINALYSIS MICROSCOPIC (05/16/2024 11:58 AM CDT) RBC 0-2 0-2, None Seen /HPF 05/16/2024 12:16 PM CDT [facility] [[email or web address]] WBC 3-5 0-2, 3-5, None Seen /HPF 05/16/2024 12:16 PM CDT [facility] [[email or web address]] BACTERIA Many(A) None Seen, Rare, Few Bacteria/H PF 05/16/2024 12:16 PM CDT [facility] [[email or web address]] EPITHELIAL CELLS Few None Seen, Few Epi/HPF 05/16/2024 12:16 PM CDT [facility] [[email or web address]] Urine URINE SPECIMEN / Unknown Non-Blood / Unknown 05/16/2024 11:58 AM CDT 05/16/2024 12:07 PM CDT Brandi Tirado MD URINE Performing Organization Address [facility]/ZIP Co de Phone Number [facility] [[email or web address]] [address] [place] [address], [place] [phone] * URINE CULTURE (05/16/2024 11:58 AM CDT) CULTURE <10,000 CFU/mL multiple organisms 05/18/2024 11:27 AM CDT [facility] Urine URINE SPECIMEN / Unknown Non-Blood / Unknown 05/16/2024 11:58 AM CDT 05/16/2024 12:07 PM CDT Brandi Tirado MD MICROBIOLOGY [facility] [address] [place] [address], [place] * (ABNORMAL) UA W/ SEDIMENT EXAM REFLEXED PER CRITERIA (05/16/2024 11:58 AM CDT) COLOR Yellow Yellow Color 05/16/2024 12:16 PM CDT [facility] [email or web address]] CLARITY Clear Clear Clarity 05/16/2024 12:16 PM CDT [facility] [[email or web address]] SPECIFIC GRAVITY,URINE 1.025 1.010, 1.015, 1.020, 1.025 05/16/2024 12:16 PM CDT [facility] [[email or web address]] PH,URINE 6.5 6.0, 7.0, 8.0, 5.5, 6.5, 7.5, 8.5 05/16/2024 12:16 PM CDT [facility] [[email or web address]] UROBILINOGEN, QUALITATIVE Normal Normal EU/dl 05/16/2024 12:16 PM CDT [facility] [[email or web address]] PROTEIN, URINE Negative Negative mg/dL 05/16/2024 12:16 PM CDT [facility] [[email or web address]] GLUCOSE, URINE Negative Negative mg/dL 05/16/2024 12:16 PM CDT [facility] [[email or web address]] KETONES,URINE Negative Negative mg/dL 05/16/2024 12:16 PM CDT [facility] [[email or web address]] BILIRUBIN,URI NE Negative Negative 05/16/2024 12:16 PM CDT [facility] [[email or web address]] OCCULT BLOOD,URINE Negative Negative 05/16/2024 12:16 PM CDT [facility] [[email or web address]] NITRITE Negative Negative 05/16/2024 12:16 PM CDT [facility] [[email or web address]] LEUKOCYTE ESTERASE Trace(A) Negative 05/16/2024 12:16 PM CDT [facility] [[email or web address]] Urine URINE SPECIMEN / Unknown Non-Blood / Unknown 05/16/2024 11:58 AM CDT 05/16/2024 12:07 PM CDT Brandi Tirado MD URINE [facility] [[email or web address]] [address] [place] [address], * TREPONEMA PALLIDUM (04/18/2024 11:28 AM CDT) TREPONEMA PALLIDUM Non-Reacti ve Non-Reacti ve 04/18/2024 11:40 PM CDT [facility] Blood BLOOD SPECIMEN / Unknown Venipuncture / Unknown 04/18/2024 11:28 AM CDT 04/18/2024 11:30 AM CDT Brandi Tirado MD SEND OUTS [facility] [address] [place] [address], * HEMOGLOBIN (04/18/2024 11:28 AM CDT) HEMOGLOBIN 12.3 12.0 - 16.0 g/dL 04/18/2024 11:34 AM CDT [facility] [[email or web address]] MCV 92 80 - 100 fL 04/18/2024 11:34 AM CDT [facility] [[email or web address]] Blood BLOOD SPECIMEN / Unknown Venipuncture / Unknown 04/18/2024 11:28 AM CDT 04/18/2024 11:30 AM CDT Brandi Tirado MD HEMATOLOGY Performing Organization Address City/[facility]/ZIP Co de Phone Number [facility] [[email or web address]] [address] [place] [address], [place] [phone] * GLUCOSE,GESTATIONAL (04/18/2024 11:28 AM CDT) GLUCOSE,GESTAT IONAL 74 70 - 139 mg/dL 04/18/2024 11:37 AM CDT [facility] [[email or web address]] Blood BLOOD SPECIMEN / Unknown Venipuncture / Unknown 04/18/2024 11:28 AM CDT 04/18/2024 11:30 AM CDT Brandi Tirado MD CHEMISTRY [facility] [[email or web address]] [address] [place] [address], [place] [phone] * (ABNORMAL) HPV HIGH RISK (01/16/2024 9:25 AM CONFERENCE MANAGER) Pathologist [facility] TYPE 16 Negative Negative 01/21/2024 5:21 PM CONFERENCE MANAGER [facility] TYPE 18 Negative Negative 01/21/2024 5:21 PM CONFERENCE MANAGER [facility] OTHER HIGH RISK TYPES Positive(A) Negative 01/21/2024 5:21 PM CONFERENCE MANAGER [facility] Other (Cervical) Non-Blood / Unknown 01/16/2024 9:25 AM CONFERENCE MANAGER 01/17/2024 1:50 PM CONFERENCE MANAGER Narrative [facility] - 01/21/2024 5:21 PM CONFERENCE MANAGER Specimen is positive for the DNA of any one of, or combination of, the following high risk HPV types: 31, 33, 35, 39, 45, 51, 52, 56, 58, 59, 66, 68. HPV types 16 and 18 DNA were undetectable or below the pre-set threshold. ? Methodology: Dayanara Zita 4800 HPV Test Brandi Tirado MD MICROBIOLOGY Performing Organization Address [facility]/ZIP Co de Phone Number [facility] [address] [place] [address], * ANTI HCV (11/13/2023 11:28 AM CONFERENCE MANAGER) [facility] HEPATITIS C ANTIBODY Non-Reacti ve Non-React karen 11/13/2023 9:23 PM CONFERENCE MANAGER [facility] Comment:Please note, per www .CDC.gov: If a patient is known to be at high risk of HCV infection, or is symptomatic, and the physician's suspicion of HCV infection is high, HCV RNA testing is often employed and is of diagnostic value, even after an initial negative anti-HCV test result. Blood BLOOD SPECIMEN / Unknown Venipuncture / Unknown 11/13/2023 11:28 AM CONFERENCE MANAGER 11/13/2023 11:29 AM CONFERENCE MANAGER Brandi Tirado MD SEND OUTS Performing Organization Address City/[facility]/ZIP Co de Phone Number [facility] [address] [place] [address], * ANTI HIV 1/2 (11/13/2023 11:28 AM CONFERENCE MANAGER) HIV-1/HIV-2 SCREEN Non-Reacti ve Non-Reacti ve 11/13/2023 9:21 PM CONFERENCE MANAGER [facility] Comment:HIV-1 p24 and HIV-1/ HIV-2 Ab Not Detected. Blood BLOOD SPECIMEN / Unknown Venipuncture / Unknown 11/13/2023 11:28 AM CONFERENCE MANAGER 11/13/2023 11:29 AM CONFERENCE MANAGER Brandi Tirado MD SEND OUTS [facility] [address] [place] [address], from Last 3 Months or Most Recently Relevant to Health Maintenance Care Teams Vacuum Pan Tender Relationship Specialty Start Date End Date Brandi Tirado MD [address] [place] [address] PCP - General Family Practice 05/06/24 Abraham Stevenson MD [address] [place] [address] 11/01/23
--- NOTE | 2024-07-07 15:50 | P.LACCB_ITS ---
Consult Note - Mom Date of Visit Date of visit: 07/07/24 mental health consultant: Consuelo Strickland Visit Code: Visit Patient's Information Phone number: [phone] : 1 Para: 1 Allergies No Known Drug Allergies Allergy (Verified 07/03/24 17:19) Mother's Medical History: Medical History (Updated 07/05/24 @ 09:25 by Carla Betts MD) Depression ?F32.A - Depression, unspecified (ICD-10) Delivery Information Delivery type: Vaginal Weeks Gestation: 39+3 Gestational Age: AGA Weight: 3.365 kg Discharge Weight: 3.196 kg Baby's Information Baby's Age at Visit: 3 days Baby's Provider or Clinic: [facility] Vigil Jaundice: Yes (bilirubin not checked as had clinic appt this morning and being watched) Reason for Consult Reason for Consult: mom is engorged on her right breast, less milk on her left breast, and baby is not eating well since middle of the night Past Experience Past Experience: No Current Frequency of Day Feedings: trying every 2-3 hours Frequency of Night Feedings: same Both Breasts: Yes Suck: strong when he gets going Latch: shallow and getting more chompy per mom Length of Time: 5-10 minutes Pumping Pumping: No Supplementing EMB Supplement: Yes (hand expressed, 3-4 ml twice this morning) Baby Elimination Number of Wet Diapers a Day: 3 or more Number of BM a Day: 3, still dark green and sticky Breast/Nipple Condition Breast Information: Breasts WNL, right breast at least double in size compared to left and rounded. Right breast taut, no redness noted. Intramammary distance <1.5 inches. Nipples are supple and without retraction. Engorgement: Yes (right side only) Interventions for Engorgement: Other (nothing yet) Maternal Nipple Condition - Left: Common Nipple and Cracking/ Fissures Maternal Nipple Condition - Right: Common Nipple and Cracking/ Fissures Sore Nipples: Yes Interventions for Sore Nipples: Lansinoh, Soothies and Other (silverettes) Onsite Pre-Feed weight: 3.172 kg Post-Feed weight: 3.187 kg Milk Transferred (mL): 15 Pre-Nursing Left Nipple: Crusting/Scabs Pre-Nursing Right Nipple: Crusting/Scabs Post-Nursing Left Nipple: Crusting/Scabs Post-Nursing Right Nipple: Crusting/Scabs Assessments/Interventions Assessments/Interventions: Engorgement of right side, slow milk production on left side, potential for inadequate milk intake observation: started on right breast - babe able to latch wide and deep and reverse pressure softening and mom using asymmetric latch technique with breast sandwich using breast compression to enhance milk intake, babe latched for 15 minutes, swallowing seen (harder to hear); after weight, transfered 5 ml then latched to left breast, wide, deep latch in cross cradle hold, nursed for 15 minutes, transferred 5 ml while nursing on left breast had Haakaa attached to mom's right breast to help relieve engorgement; collected 10 ml; babe took 5 ml via finger feeding before allowing milk to drip out of mouth Plan: offer breast every 2-3 hours; continue with wide, deep latch 10-15 minutes each side to encourage feeding from both breasts to help engorgement mom to pump to relieve fullness as needed; also reviewed hand expression Handout on Engorgement given: warm pack/shower prior to nursing or pumping, feed or pump, cool pack after to relieve breast congestion gentle massage while nursing pumping to help move milk ibuprofen for pain and swelling Time spent reviewing chart and face to face with mom, and baby: 70 minutes Meds Home Medications and Allergies Home Medications ?Medication ?Instructions ?Recorded ?Confirmed ?Type escitalopram oxalate 5 mg tablet 5 mg PO QAM 07/03/24 07/07/24 History vit no.95-ferrous 2 tab PO DAILY 07/03/24 07/07/24 History fumarate 28 mg-folic acid 800 mcg tablet () Allergies Allergy/AdvReac Type Severity Reaction Status Date / Time No Known Drug Allergies Allergy Verified 07/03/24 17:19
== END 2024-07-07 14:14 | disposition home or self-care (01) ==
LOC: OB LAC 14:16
PROVIDERS: PCP Family Medicine; Visit Provider Obstetrics & Gynecology
DX: Z39.1 Encounter for care and examination of lactating mother (principal)
CPT/HCPCS: G0463

== ENCOUNTER 2024-07-09 14:19 | Outpatient (CLI) | payer BC, SELFPAY ==
--- OUTSIDE RECORDS SUMMARY | 2024-07-09 14:20 | XMS_ITS | Clinical Summary ---
Author Organization [facility] Address [place], [place] [address] Care Team Providers Care Bottle Washer Name Role Phone Abraham Stevenson MD Unavailable [phone] Brandi Tirado MD Primary Care Provider [...] Date Diagnosed Date Choroid plexus cyst 03/06/2024 [facility] Supervision of high-risk Overview: Marlo Hearn : 1995 [facility] ULTRASOUND/TESTING PATIENT Support person name: Anselmo ULTRASOUND [...] Encounters Date Type Department Care Team Description 07/09/2024 Nurse/Clinic Staff Only [facility] [address] [place] [address] Brandi Tirado MD Leg Swelling 07/05/2024 Orders Only [facility] Scanner 1 scan: (1-Ord) [facility], HGB, 07/05/2024 07/03/2024 Orders Only [facility] Scanner 1 scan: (1-Ord) [facility] RPR, 07/03/2024 07/03/2024 Orders Only [facility] Scanner 1 scan: (1-Ord) [facility], LAB RESULTS, 07/03/2024 07/02/2024 8:25 AM CDT OB Encounter [facility] [address] [place] [address] Brandi Tirado MD Care (39w1d ) 07/02/2024 Travel 07/01/2024 Telephone [facility] [address] [facility] [place] [address] Brandi Tirado MD Appointment Request (APPT REQUEST PRIOR TO 8-16 IF POSSIBLE ) 06/30/2024 Travel 06/27/2024 8:45 AM CDT OB Encounter [facility] [address] [facility] [place] [address] Lainey Casey DO Care (38 weeks 3 days) 06/27/2024 Travel 06/23/2024 Travel 06/20/2024 8:50 AM CDT OB Encounter [facility] [address] [place] [place] [address] Brandi Tirado MD Care (37w 3d/Anxiety is pretty high right now) 06/20/2024 Travel 06/16/2024 Travel 06/13/2024 9:15 AM CDT OB Encounter [facility] [address] [place] [address] Brandi Tirado MD Care (36w 3d) 06/13/2024 Travel 06/10/2024 Travel 05/29/2024 11:45 AM CDT OB Encounter [facility] [address] [place] [address] Brandi Tirado MD Care (34w 2d/) 05/28/2024 Travel 05/16/2024 11:45 AM CDT OB Encounter [facility] [address] [place] [address] Brandi Tirado MD Care (32 wks 3 days/might have yeast infection-- itchy and feeling like needing to pee more than normal and pain /) 05/16/2024 Travel 05/01/2024 3:15 PM CDT OB Encounter [facility] [address] [place] [address] Brandi Tirado MD Care (30 wks 2 days bacne has been getting worse and painful would like to talk about that) 05/01/2024 Travel 04/18/2024 10:30 AM CDT OB Encounter [facility] [address] [place] [address] Brandi Tirado MD Care (28w 3d/) 04/18/2024 [...] Estimated Date of Delivery 11/13/2023 - Present (07/09/2024) 07/08/2024 (set by Erica Mcdaniel RN on 11/13/2023 based on Alternate HORTENCIA Entry) Dating Summary Based On HORTENCIA GA Diff Last Menstrual Period on 10/02/2023 (Exact Date) 07/08/2024 Same Alternate HORTENCIA Entry 07/08/2024 Working Vitals Pregravid Weight Height TWG (As of 07/09/2024) Pregrav id BMI 1.676 m (5' 6) [...] None Concerns today: has had a few Leland Mandujano contractions; nothing particularly painful or consistent. [...] r - 06/13/2024 - GA:36w3d 06/13/2024 - 363d - Brandi Tirado MD SUBJECTIVE: Marlo Hearn [...] at 30+2 weeks. Went to ER in [place], [place] while vacationing due to decreased movement. [...] r - 04/18/2024 - GA:28w3d 04/18/2024 - w3d - Brandi Tirado MD SUBJECTIVE: Marlo Hearn [...] r - 03/21/2024 - GA:24w3d 03/21/2024 - 3d - Brandi Tirado MD SUBJECTIVE: Marlo Hearn [...] GA:22w2d 03/06/2024 - - Brice Corrigan MS, [facility] / Clinic Note Genetic Counseling RE: Marlo Hearn : 1995 MR: [id number] Referred By: Brandi Tirado MD Indication for [...] it is called a choroid plexus cyst (EXTRUDING DEPARTMENT SUPERVISOR cyst). EXTRUDING DEPARTMENT SUPERVISOR cysts are not harmful and frequently go away by 30 weeks of . Most often EXTRUDING DEPARTMENT SUPERVISOR cysts occur as the only finding in a and are not associated with an increased level of concern. When EXTRUDING DEPARTMENT SUPERVISOR cysts are seen in association with other [...] in a high risk center such as [facility]. If concerning findings are noted by ultrasound, further tests will be recommended. If the ultrasound results are reassuring yet the patient still wants more information, cell free DNA testing or amniocentesis can be considered. Reassuringly, Marlo already had a low risk NIPT and the remainder of the EXTRUDING DEPARTMENT SUPERVISOR appeared to be an isolated finding. Plan: Marlo will proceed with the level II ultrasound today. See ultrasound report for details. Thank you for allowing us to participate in your patient's care. Please do not hesitate to contact me at [phone] with any additional questions or concerns. Sincerely, Reed Corrigan MS, [facility] Licensed Genetic Counselor Total time: 30 minutes in person [facility] - [address] , [address] [place], [place] [id number] 03/06/2024 - 22w2d - Senthil Knapp MD MPP Ultrasound Visit Your patient had an ultrasound with [facility] on 03/06/2024. The report is ready and can be found in the Results review [facility]. Recommendations regarding further care are [...] the patient. An isolated choroid plexus cyst (EXTRUDING DEPARTMENT SUPERVISOR) was found on today's ultrasound. Today's findings are reassuring. CPCs have been associated with trisomy 18, however, most fetuses with an isolated choroid plexus cyst are euploidic, and, in fact, about 2-4% of normal fetuses have CPCs. An isolated EXTRUDING DEPARTMENT SUPERVISOR in a low risk patient with an [...] Decision Making: Consult 30 min Low Level [address] Limited number/complexity of problems including resolved EXTRUDING DEPARTMENT SUPERVISOR Limited amount of data including review of [...] Brandi Tirado MD .................... 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 AMA: no Previous : no OB History Para Term AB Living 1 0 0 0 0 SAB IAB Ectopic Multiple Live Births 0 0 0 # Outcome Date GA Lbr Celso/2nd Weight Sex Delivery Anes PTL Lv 1 Current Past Medical History: . Date Abnormal Pap smear of cervix 2019 Has had normal PAP since Depression 2016 Migraine headache 2016 Varicella 1999 Past Surgical [...] of normal first in first trimester Z34.01 [place] COLLECTION VENOUS BLOOD VENIPUNCTURE 2. Screening for cervical cancer Z12.4 ENTEROSTOMAL THERAPY NURSE THIN PREP PAP SCREEN IMAGED [[id number]] Satisfactory exam. Demonstrates appropriate and health-seeking behaviors [...] needed in or . 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 MENSTRUAL HISTORY: Patient's last menstrual period was [...] of estimated date of delivery: No Thalassemia (Liberian, Serbian, Mediterranean, or background): MCV less than 80: No Neural tube defect (Meningomyelocele, Spina bifida, or Anencephaly): No Congenital heart defect: No Down syndrome: No Bhargav-Sachs (Ashkenazi Confucianist, Cajun, Polish [place]): No Rolly disease (Ashkenazi Confucianist): No Familial dysautonomia (Ashkenazi Confucianist): No Sickle cell disease or trait (): No Hemophilia or other blood disorders: No Muscular dystrophy: No Cystic fibrosis: No [place]'s chorea: No Intellectual disability and/or autism: No [...] STATUS TREPONEMA PALLIDUM HBSAG (HBS) ANTI HCV ENTEROSTOMAL THERAPY NURSE PROBE - GC CHLAMYDIA DNA PCR [[id number]] URINALYSIS W REFLEX MICROSCOPIC IF POSITIVE [85241.2] US 1ST TRIMESTER (< 14 weeks) [04817.0] EDUCATION/PATIENT INSTRUCTIONS - Advised patient to start/continue vitamin. - Discussed risk of using alcohol, tobacco, other drugs in . - Discussed healthy lifestyle in . - Provided copy of Beginnings book and book inserts, discussed gqsh-vhs-jitvlum medications, and follow up. - Encouraged patient to call clinic at [phone] with any vaginal bleeding, fluid leaking from [...] Center 12/19/2023 8:25 AM Brandi Tirado MD [facility] .................... 11/13/2023 10:31 AM FF COMPILING CLERK Last Filed Vital Signs Vital Sign Reading Time Taken Comments Blood Pressure 124/82 07/09/2024 2:07 PM CDT Pulse 67 07/09/2024 2:07 PM CDT Temperature 36.9 ??C (98.5 ??F) 03/23/2011 2:36 PM CD T Respiratory Rate 13 05/16/2024 11:53 AM CDT Oxygen Saturation 98% 07/09/2024 2:07 PM CDT Inhaled Oxygen Concentration - - Weight 90.5 kg (199 lb 9.6 oz) 07/02/2024 8:26 A M CDT Height 167.6 cm (5' 6) 12/19/2023 8:34 AM TARIFF COMPILING CLERK Body Mass Index 32.22 12/19/2023 8:34 AM TARIFF COMPILING CLERK Plan of Treatment Upcoming Encounters Date Type Department Care Team (Late st Contact Info) Description 07/11/2024 8:50 AM CDT OB Encounter [facility] [address] [place] [address] Brandi Tirado MD [address] [place] [address] Health Maintenance Due Date Last Done Comments [...] CDT SCAN-LABORATORY REPORT 07/03/2024 12:00 AM CDT SCAN-LABORATORY REPORT 07/03/2024 12:00 [...] HPV THIN PREP Routine 01/16/2024 9:25 AM TARIFF COMPILING CLERK Cervical cancer screening ANTI HIV 1/2 Routine 11/13/2023 11:28 AM TARIFF COMPILING CLERK Encounter for supervision of normal first in first trimester ANTI HCV Routine 11/13/2023 11:28 AM TARIFF COMPILING CLERK Encounter for supervision of normal first in first trimester from Last 3 Months or Most Recently Relevant to Health Maintenance Results * SCAN-LABORATORY REPORT (07/05/2024 12:00 AM CDT) Only the most recent of3 resultswithin the time period is included. Scanner OTHER * VAGINAL/RECTAL OB STREP PCR (06/13/2024 9:35 AM CDT) Vaginal/Rectal OB Strep B PCR Negative 06/15/2024 9:22 AM CDT [facility] Other (Vaginal/Rectal) Non-Blood / Unknown 06/13/2024 9:35 AM CDT 06/13/2024 10:04 AM CDT Brandi Tirado MD MICROBIOLOGY [facility] [address] [place] [address], * (ABNORMAL) URINALYSIS MICROSCOPIC (05/16/2024 11:58 AM CDT) RBC 0-2 0-2, None Seen /HPF 05/16/2024 12:16 PM CDT [facility] WBC 3-5 0-2, 3-5, None Seen /HPF 05/16/2024 12:16 PM CDT [facility] BACTERIA Many(A) None Seen, Rare, Few Bacteria/H PF 05/16/2024 12:16 PM CDT [facility] EPITHELIAL CELLS Few None Seen, Few Epi/HPF 05/16/2024 12:16 PM CDT [facility] Urine URINE SPECIMEN / Unknown Non-Blood / Unknown 05/16/2024 11:58 AM CDT 05/16/2024 12:07 PM CDT Brandi Tirado MD URINE [facility] [address] [place] [address], * URINE CULTURE (05/16/2024 11:58 AM CDT) CULTURE <10,000 CFU/mL multiple organisms 05/18/2024 11:27 AM CDT [facility] Urine URINE SPECIMEN / Unknown Non-Blood / Unknown 05/16/2024 11:58 AM CDT 05/16/2024 12:07 PM CDT Brandi Tirado MD MICROBIOLOGY [facility] [address] [place] [address], [place] * (ABNORMAL) UA W/ SEDIMENT EXAM REFLEXED PER CRITERIA (05/16/2024 11:58 AM CDT) COLOR Yellow Yellow Color 05/16/2024 12:16 PM CDT [facility] CLARITY Clear Clear Clarity 05/16/2024 12:16 PM CDT [facility] SPECIFIC GRAVITY,URINE 1.025 1.010, 1.015, 1.020, 1.025 05/16/2024 12:16 PM CDT [facility] PH,URINE 6.5 6.0, 7.0, 8.0, 5.5, 6.5, 7.5, 8.5 05/16/2024 12:16 PM CDT [facility] UROBILINOGEN, QUALITATIVE Normal Normal EU/dl 05/16/2024 12:16 PM CDT [facility] PROTEIN, URINE Negative Negative mg/dL 05/16/2024 12:16 PM CDT [facility] GLUCOSE, URINE Negative Negative mg/dL 05/16/2024 12:16 PM CDT [facility] KETONES,URINE Negative Negative mg/dL 05/16/2024 12:16 PM CDT [facility] BILIRUBIN,URI NE Negative Negative 05/16/2024 12:16 PM CDT [facility] OCCULT BLOOD,URINE Negative Negative 05/16/2024 12:16 PM CDT [facility] NITRITE Negative Negative 05/16/2024 12:16 PM CDT [facility] LEUKOCYTE ESTERASE Trace(A) Negative 05/16/2024 12:16 PM CDT [facility] Urine URINE SPECIMEN / Unknown Non-Blood / Unknown 05/16/2024 11:58 AM CDT 05/16/2024 12:07 PM CDT Brandi Tirado MD URINE Performing Organization Address City/[facility]/ZIP Co de Phone Number [facility] [address] [place] [address], [place] [phone] * TREPONEMA PALLIDUM (04/18/2024 11:28 AM CDT) TREPONEMA PALLIDUM Non-Reacti ve Non-Reacti ve 04/18/2024 11:40 PM CDT [facility] Blood BLOOD SPECIMEN / Unknown Venipuncture / Unknown 04/18/2024 11:28 AM CDT 04/18/2024 11:30 AM CDT Brandi Tirado MD SEND OUTS Performing Organization Address City/[facility]/ZIP Co de Phone Number [facility] [address] [place] [address], * HEMOGLOBIN (04/18/2024 11:28 AM CDT) HEMOGLOBIN 12.3 12.0 - 16.0 g/dL 04/18/2024 11:34 AM CDT [facility] MCV 92 80 - 100 fL 04/18/2024 11:34 AM CDT [facility] Blood BLOOD SPECIMEN / Unknown Venipuncture / Unknown 04/18/2024 11:28 AM CDT 04/18/2024 11:30 AM CDT Brandi Tirado MD HEMATOLOGY Performing Organization Address City/[facility]/ZIP Co de Phone Number [facility] [address] [place] [address], [place] [phone] * GLUCOSE,GESTATIONAL (04/18/2024 11:28 AM CDT) GLUCOSE,GESTAT IONAL 74 70 - 139 mg/dL 04/18/2024 11:37 AM CDT [facility] Blood BLOOD SPECIMEN / Unknown Venipuncture / Unknown 04/18/2024 11:28 AM CDT 04/18/2024 11:30 AM CDT Brandi Tirado MD CHEMISTRY Performing Organization Address City/[facility]/ZIP Co de Phone Number [facility] [address] [place] [address], [place] [phone] * (ABNORMAL) HPV HIGH RISK (01/16/2024 9:25 AM TARIFF COMPILING CLERK) TYPE 16 Negative Negative 01/21/2024 5:21 PM TARIFF COMPILING CLERK [facility] TYPE 18 Negative Negative 01/21/2024 5:21 PM TARIFF COMPILING CLERK [facility] OTHER HIGH RISK TYPES Positive(A) Negative 01/21/2024 5:21 PM TARIFF COMPILING CLERK [facility] Other (Cervical) Non-Blood / Unknown 01/16/2024 9:25 AM TARIFF COMPILING CLERK 01/17/2024 1:50 PM TARIFF COMPILING CLERK Narrative [facility] - 01/21/2024 5:21 PM TARIFF COMPILING CLERK Specimen is positive for the DNA of any one of, or combination of, the following high risk HPV types: 31, 33, 35, 39, 45, 51, 52, 56, 58, 59, 66, 68. HPV types 16 and 18 DNA were undetectable or below the pre-set threshold. ? Methodology: Dayanara Zita 4800 HPV Test Brandi Tirado MD MICROBIOLOGY Performing Organization Address City/[facility]/ZIP Co de Phone Number [facility] [address] [place] [address], [place] * ANTI HCV (11/13/2023 11:28 AM TARIFF COMPILING CLERK) HEPATITIS C ANTIBODY Non-Reacti ve Non-React karen 11/13/2023 9:23 PM TARIFF COMPILING CLERK [facility] Comment:Please note, per www .CDC.gov: If a patient is known to be at high risk of HCV infection, or is symptomatic, and the physician's suspicion of HCV infection is high, HCV RNA testing is often employed and is of diagnostic value, even after an initial negative anti-HCV test result. Blood BLOOD SPECIMEN / Unknown Venipuncture / Unknown 11/13/2023 11:28 AM TARIFF COMPILING CLERK 11/13/2023 11:29 AM TARIFF COMPILING CLERK Brandi Tirado MD SEND OUTS [facility] [address] [place] [address], * ANTI HIV 1/2 (11/13/2023 11:28 AM TARIFF COMPILING CLERK) HIV-1/HIV-2 SCREEN Non-Reacti ve Non-Reacti ve 11/13/2023 9:21 PM TARIFF COMPILING CLERK [facility] Comment:HIV-1 p24 and HIV-1/ HIV-2 Ab Not Detected. Blood BLOOD SPECIMEN / Unknown Venipuncture / Unknown 11/13/2023 11:28 AM TARIFF COMPILING CLERK 11/13/2023 11:29 AM TARIFF COMPILING CLERK Brandi Tirado MD SEND OUTS [facility] [address] [place] [address], from Last 3 Months or Most Recently Relevant to Health Maintenance Care Teams Bottle Washer Relationship Specialty Start Date End Date Brandi Tirado MD [address] [place] [address] PCP - General Family Practice 05/06/24 Abraham Stevenson MD [address] [place] [address] 11/01/23
--- OUTSIDE RECORDS SUMMARY | 2024-07-09 14:21 | XMS_ITS | Clinical Summary ---
Author Organization [facility] Address [address], [place] [address] Care Team Providers Care Automation Consultant Name Role Phone Nathalie Galvan PA-C Primary Care Provider [phone] Source Comments You are receiving this document as you are listed as the primary care provider,follow-up provider, or the patient has been referred to you for consultation.This is in compliance with the Medicare and[facility] EHR Incentive Program,which states Providers who transition their patient to another setting of careor provider of care or refers their patient to another provider of care shouldprovide summary care record for each transition of care or referral. [facility] Allergies No known active allergies Medications [...] YEARS & OLDER) Routine 01/18/2022 1:40 PM SMT MACHINE OPERATOR Vaginal itching PAP TEST Routine 09/20/2020 9:51 AM SMT MACHINE OPERATOR Screening for malignant neoplasm of cervix from Last 3 Months or Most Recently Relevant to Health Maintenance Results * HIV 1/2 Ag/Ab 4th Generation (04/26/2022 3:25 PM CDT) HIV 1/2 Antigen/Antib yuval (4th generation) Negative (Non Reactive) Negative (Non Reactive) 04/26/2022 8:26 PM CDT [facility] Comment:HIV-1 p24 Antigen an d HIV-1/HIV-2 Antibody not detected Blood Venipuncture / Unknown 04/26/2022 3:25 PM CDT 04/26/2022 3:25 PM CDT Nathalie Galvan PA-C LAB_1 [facility] [address] * Hepatitis C Virus Jenn with Reflex (04/26/2022 3:25 PM CDT) Hepatitis C Antibody Negative (Non Reactive) Negative (Non Reactive) 04/26/2022 8:45 PM CDT [facility] Comment:Antibodies to HCV no t detected. Does not exclude the possiblity of exposure to HCV. Blood Venipuncture / Unknown 04/26/2022 3:25 PM CDT 04/26/2022 3:25 PM CDT Nathalie Galvan PA-C LAB_1 [facility] [address] * Chlamydia and GC STD (01/18/2022 1:40 PM SMT MACHINE OPERATOR) Chlamydia Trachomatis STD Not Detected Not Detected 01/19/2022 12:06 PM SMT MACHINE OPERATOR [facility] N. gonorrhoeae STD Not Detected Not Detected 01/19/2022 12:06 PM SMT MACHINE OPERATOR [facility] Swab STD SPECIMEN FROM VAGINA / Unknown Non-blood Collection / Unknown 01/18/2022 1:40 PM SMT MACHINE OPERATOR 01/18/2022 3:48 PM SMT MACHINE OPERATOR Narrative [facility] - 01/19/2022 12:06 PM SMT MACHINE OPERATOR Test performed by Vinyl Top Installer Mediated Amplification (TMA). Nathalie Galvan PA-C LAB_1 Performing Organization Address [facility] Co de Phone Number [facility] [address] [phone] * PAP Test (09/20/2020 9:51 AM SMT MACHINE OPERATOR) Case Report Pap ? Case: [id number] ? Authorizing Provider: ??Faith Carr APRN, EDDA Collected: ? 09/20/2020 0951 ? Ordering Location: ? [facility] ?? Received: ?09/20/2020 1039 ? First Screen: ?Vanessa Moctezuma CT (ASCP) ? Specimen: ?Pap Test, Routine, Cervix/Endocervix ? 09/24/2020 10:07 AM [facility] Pap Specimen Adequacy Satisfactory for evaluation, endocervical/ramsay sformation zone component absent. 09/24/2020 10:07 AM [facility] Pap Interpretation Negative for intraepithelial lesion or malignancy (NILM). 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 09/24/2020 10:07 AM [facility] Pap Disclaimer The Pap test is a screening test designed to aid in the detection of cervical cancer and its precursor lesions. It is not a diagnostic procedure and should not be used as the sole means of detecting cervical cancer. Both false-positive and false-negative results may occur. 09/24/2020 10:07 AM [facility] Gross Description The specimen is received in SurePath fixative and properly labeled. 1 Pap-stained SurePath slide is prepared. 09/24/2020 10:07 AM [facility] Embedded Images 0 10:07 AM [facility] Other Specimen Type ENTIRE ENDOCERVIX / Unknown 09/20/2020 9:51 AM SMT MACHINE OPERATOR 09/20/2020 10:39 AM SMT MACHINE OPERATOR Comment:LMP: Patient's last menstrual period was 09/14/2020 (approximate). Faith Carr APRN, SPOUT POSITIONER LAB PATHOLOGY Performing Organization Address City/State/[facility] Co de Phone Number [address] [address], [facility] [phone] from Last 3 Months or Most Recently Relevant to Health Maintenance Advance Directives * Full Code (Latest Code Status on File) Date Activated Date Inactivated Comments 04/20/2022 3:18 PM 2022 1:13 PM Question Answer Comments On Admission, Code status was determined by: Dis cussed with patient/family Care Teams Automation Consultant Relationship Specialty Start Date End Date Nathalie Galvan PA-C [address] [place] [address] PCP - General Physician Fact Checker 08/23/22
--- NOTE | 2024-07-09 15:52 | W.PM.LAC.MF ---
Follow-Up Note: Mom Date of visit Date of visit: 07/09/24 teamcenter consultant: Consuelo Strickland Visit Code: Visit Patient's Information Allergies No Known Drug Allergies Allergy (Verified 07/03/24 17:19) Delivery Information Delivery type: Vaginal Weeks Gestation: 39+3 Gestational Age: AGA Weight: 3.365 kg Baby's Information Baby's Age at Visit: 5d Reason for Consult Reason for Consult: f/u for ongoing pain with . New onset of pain with feedings. Marlo describes pain as shooting pains up breast, around back (does not cross over spine to other side of back), down arm with sensation of hot spots on arm on side she is on. Happens fairly quickly with the start of nursing, less than 30 seconds she believes. Once she stops nursing it can take a bit to settle/calm down. Nipples are a little creased by the end of the feeding and white. Initially this was happening just when nursing on the right breast, started occurring with nursing on the left breast - just as mom is feeling her milk begin to come in more on the left side. Last was about midnight last night. This does not happen with pumping so she has pumped and bottled the feedings since midnight. No immediate/overwhelming mood changes at the start of nursing identified. No overall mood changes when this happens. Of note, mom does describe she is not sure she is bonding with the baby. She has no concerns for hurting him or herself, just doesn't feel like she's connecting with him. Verbalizes she hasn't even held him today with trying to care for herself and all the pumping she's doing. She has a history of anxiety and depression and is on Lexapro 5mg daily. She has talked with Dr. Tirado a little about how she's feeling, but not in depth. Mom pumped while here - retrieved 30 ml from right breast, 5-7 ml from left breast Current Frequency of Day Feedings: every 2.5-3 hours Frequency of Night Feedings: every 3 hours, needs to be woken for feedings Length of Time: 20 min both breasts if breastfeeds Pumping Pumping: Yes Quantity Pumped: Left side: 10ml/pump; right side: 30-40ml/pump Supplementing EMB Supplement: Yes Formula Supplement: Yes (x1) Baby Elimination Number of Wet Diapers a Day: 6 or more/day Number of BM a Day: 3 or more Breast/Nipple Assessment Breast/Nipple Assessment: Right breast still larger than left breast; right breast less taut, left breast a bit larger than 2 days ago. Nipples with sight excoriation R nipple 24 mm in diameter; L nipple 23 mm in diameter No erythema on either breast Assessments/Interventions Assessments/Interventions: Discussed DEMR and/or neuropathic nipple pain as possible cause of pain she is feeling; need to get nipples healed and see if that decreases the sensation she is having. Continue with silverettes and nipple cream Given the pain doesn't happen with pumping, she can protect her milk supply via pumping while we look into treatment options. She is on Lexapro 5mg once a day; Dr. Tirado talked with her about increasing to 10 mg daily to help with anxiety/depression symptoms - marlo is considering doing this.Will also reach out to Dr. Tirado if her mood shifts for the worse abruptly; discussed with her to be aware of changes as well. Discussed: Continue with pumping every 2-3 hours to build/maintain supply; one 4-hour stretch at night for a few nights might be helpful to increase her sleep Continue with hands on pumping as able She will try once/day to see if pain has subsided and she can resume feeding at the breast; warm pack to breast/nipple before and after nursing might help with milk flow and decrease pain if vasospasm is part of the pain etiology Discussed given discrepancy in breast sizes, baby will need to nurse both breasts ea feeding since currently Left side not making as much milk (this may tar heat exchanger cleaner the next few days) Nipple shield as an option discussed if this decreases direct friction on her nipple; may decrease pain sensation she is having. Discussed tracking pump totals in 24 hours to know how her supply is changing Discussed paced bottle feeding to help when baby can transition back to Flange size given as this may increase the efficiency/effectiveness of her pumping sessions Follow up in 2 days for progress, sooner if needed Time spent reviewing chart and face to face with mom, and baby: 70 minutes Meds Home Medications and Allergies Home Medications ?Medication ?Instructions ?Recorded ?Confirmed ?Type escitalopram oxalate 5 mg tablet 5 mg PO QAM 07/03/24 07/07/24 History vit no.95-ferrous 2 tab PO DAILY 07/03/24 07/07/24 History fumarate 28 mg-folic acid 800 mcg tablet () Allergies Allergy/AdvReac Type Severity Reaction Status Date / Time No Known Drug Allergies Allergy Verified 07/03/24 17:19
== END 2024-07-09 14:20 | disposition home or self-care (01) ==
PROVIDERS: PCP Family Medicine; Visit Provider Family Medicine
DX: Z39.1 Encounter for care and examination of lactating mother (principal)
CPT/HCPCS: G0463